=== PATIENT | female | born 1940 | race Caucasian/White ===

== ENCOUNTER 2021-10-11 09:13 | Outpatient (RCR) | payer MEDICARE, BC, SELFPAY ==
[2021-10-11 09:48] LABS: Basophils Percent Auto 0.9 % (0.0-3.0); Hematocrit 35.9 % (33.0-51.0); Hemoglobin* 11.8 gm/dL (12.0-16.0); Immature Granulocytes Abs Auto 0.02 K/uL (0.00-0.30); Lymphocytes Percent Auto 23.2 % (20-44); Mean Corpuscular HGB Conc 33 gm/dL (32-36); Mean Corpuscular Hemoglobin 41 pg (26-34); Mean Corpuscular Volume 126 fL (80-100); Monocytes Percent Auto 6.8 % (0.0-11.0); Neutrophils Percent Auto 65.6 % (42.0-72.0); Platelet Count* 314 K/uL (140-440); RDW Coefficient of Variation % 14.5 % (11.5-15.5); Red Blood Count 2.85 m/uL (4.00-5.20)
[2021-10-11 09:56] LABS: Slide Review Reflex No
[2021-10-11 10:05] LABS: Chloride* 106 mmol/L (96-114); Potassium* 4.5 mmol/L (3.6-5.1); Sodium* 139 mmol/L (135-149)
[2021-10-11 10:07] LABS: Bilirubin Total* 0.6 mg/dL (0.1-1.5); Creatinine* 0.7 mg/dL (0.5-1.5)
[2021-10-11 10:08] LABS: Alanine Aminotransferase* 18 U/L (4-35); Alkaline Phosphatase* 49 U/L (40-150); Aspartate Amino Transferase* 32 U/L (12-35); Blood Urea Nitrogen* 24 mg/dL (7-30); Calcium* 8.9 mg/dL (8.4-10.6); Carbon Dioxide* 32 mmol/L (20-32); Glucose* 81 mg/dL (60-115); Total Protein* 6.1 g/dL (6.0-8.3)
== END 2021-10-28 23:59 | disposition home or self-care (01) ==
LOC: CCIC 09:13
PROVIDERS: Internal Medicine Hematology & Oncology; PCP Family Medicine; Visit Provider Clinical Nurse Specialist
DX: D47.3 Essential (hemorrhagic) thrombocythemia (principal); D49.4 Neoplasm of unspecified behavior of bladder; G25.81 Restless legs syndrome
CPT/HCPCS: 36415; 80053; 85025; 99212; 99214

== ENCOUNTER 2022-04-29 11:00 | Outpatient (RCR) | payer MEDICARE, BC, SELFPAY ==
[2021-11-08 08:46] LABS: Basophils Absolute Auto 0.07 K/uL (0.00-0.30); Basophils Percent Auto 1.4 % (0.0-3.0); Eosinophils Absolute Auto 0.12 K/uL (0.00-0.50); Eosinophils Percent Auto 2.4 % (0.0-7.0); Hematocrit 36.6 % (33.0-51.0); Hemoglobin* 12.1 gm/dL (12.0-16.0); Immature Granulocytes Abs Auto 0.03 K/uL (0.00-0.30); Lymphocytes Absolute Auto 1.28 K/uL (0.90-2.90); Lymphocytes Percent Auto 26.1 % (20-44); Mean Corpuscular HGB Conc 33 gm/dL (32-36); Mean Corpuscular Hemoglobin 42 pg (26-34); Mean Corpuscular Volume 128 fL (80-100); Monocytes Percent Auto 7.3 % (0.0-11.0); Neutrophils Absolute Auto 3.04 K/uL (1.7-7.0); Neutrophils Percent Auto 62.2 % (42.0-72.0); Platelet Count* 358 K/uL (140-440); Red Blood Count 2.86 m/uL (4.00-5.20)
[2021-11-08 08:51] LABS: Slide Review Reflex No
--- NOTE | 2021-11-08 10:26 | ONC.NURNOTE ---
Lab results called to Karla to be reviewed by Dr Alfredo confirmed current dose 1000mg Tu-Nunez 1500 mg Friday refills needed monthly lab appts make for Nov/Dec
[2021-12-12 08:57] LABS: Basophils Absolute Auto 0.05 K/uL (0.00-0.30); Basophils Percent Auto 1.1 % (0.0-3.0); Eosinophils Absolute Auto 0.15 K/uL (0.00-0.50); Eosinophils Percent Auto 3.3 % (0.0-7.0); Hematocrit 37.5 % (33.0-51.0); Hemoglobin* 12.4 gm/dL (12.0-16.0); Immature Granulocytes Abs Auto 0.02 K/uL (0.00-0.30); Lymphocytes Absolute Auto 1.15 K/uL (0.90-2.90); Lymphocytes Percent Auto 25.2 % (20-44); Mean Corpuscular HGB Conc 33 gm/dL (32-36); Mean Corpuscular Hemoglobin 43 pg (26-34); Mean Corpuscular Volume 128 fL (80-100); Monocytes Percent Auto 5.9 % (0.0-11.0); Neutrophils Absolute Auto 2.92 K/uL (1.7-7.0); Neutrophils Percent Auto 64.1 % (42.0-72.0); Platelet Count* 352 K/uL (140-440); RDW Coefficient of Variation % 12.1 % (11.5-15.5); Red Blood Count 2.92 m/uL (4.00-5.20); White Blood Count* 4.56 K/uL (4.50-11.00)
[2021-12-12 09:05] LABS: Slide Review Reflex No
[2021-12-12 09:06] LABS: Albumin* 4.2 g/dL (3.3-5.0); Chloride* 105 mmol/L (96-114)
[2021-12-12 09:07] LABS: Potassium* 3.8 mmol/L (3.6-5.1); Sodium* 140 mmol/L (135-149)
[2021-12-12 09:09] LABS: Alkaline Phosphatase* 56 U/L (40-150); Aspartate Amino Transferase* 30 U/L (12-35); Bilirubin Total* 0.4 mg/dL (0.1-1.5); Blood Urea Nitrogen* 20 mg/dL (7-30); Carbon Dioxide* 29 mmol/L (20-32); Creatinine* 0.7 mg/dL (0.5-1.5); Estimated Glomerular Filt Rate 86 ml/min; Total Protein* 6.7 g/dL (6.0-8.3)
[2021-12-12 09:10] LABS: Alanine Aminotransferase* 23 U/L (4-35); Calcium* 8.8 mg/dL (8.4-10.6); Glucose* 72 mg/dL (60-115)
--- NOTE | 2021-12-13 12:41 | ONC.NURNOTE ---
Lab results reviewed by Sonia Monroy CNP and called to Karla results noted as stable with no hydrea dose changes, dose reviewed next lab 01/16 Karla with no concerns or changes to report
--- NOTE | 2021-12-13 12:52 | ONC.NURNOTE ---
Lab results reviewed by Sonia Monroy CNP and called to Karla dose reviewed and no changes needed next appts reviewed
[2022-01-16 10:22] LABS: Basophils Absolute Auto 0.05 K/uL (0.00-0.30); Basophils Percent Auto 0.9 % (0.0-3.0); Eosinophils Absolute Auto 0.16 K/uL (0.00-0.50); Eosinophils Percent Auto 2.8 % (0.0-7.0); Hematocrit 38.7 % (33.0-51.0); Hemoglobin* 12.7 gm/dL (12.0-16.0); Immature Granulocytes Abs Auto 0.05 K/uL (0.00-0.30); Lymphocytes Percent Auto 19.2 % (20-44); Mean Corpuscular HGB Conc 33 gm/dL (32-36); Mean Corpuscular Hemoglobin 42 pg (26-34); Mean Corpuscular Volume 128 fL (80-100); Monocytes Percent Auto 5.8 % (0.0-11.0); Neutrophils Absolute Auto 4.01 K/uL (1.7-7.0); Neutrophils Percent Auto 70.4 % (42.0-72.0); Platelet Count* 325 K/uL (140-440); RDW Coefficient of Variation % 12.2 % (11.5-15.5); Red Blood Count 3.02 m/uL (4.00-5.20); White Blood Count* 5.69 K/uL (4.50-11.00)
[2022-01-16 10:23] LABS: Slide Review Reflex No
[2022-01-16 10:40] LABS: Albumin* 4.4 g/dL (3.3-5.0); Chloride* 103 mmol/L (96-114); Potassium* 4.2 mmol/L (3.6-5.1); Sodium* 139 mmol/L (135-149)
[2022-01-16 10:43] LABS: Alanine Aminotransferase* 26 U/L (4-35); Alkaline Phosphatase* 62 U/L (40-150); Aspartate Amino Transferase* 31 U/L (12-35); Bilirubin Total* 0.4 mg/dL (0.1-1.5); Blood Urea Nitrogen* 29 mg/dL (7-30); Carbon Dioxide* 31 mmol/L (20-32); Creatinine* 0.7 mg/dL (0.5-1.5); Estimated Glomerular Filt Rate 86 ml/min; Glucose* 109 mg/dL (60-115); Total Protein* 6.9 g/dL (6.0-8.3)
[2022-01-16 10:44] LABS: Calcium* 9.5 mg/dL (8.4-10.6)
--- NOTE | 2022-01-16 14:25 | ONC.NURNOTE ---
Pt called with lab results. Hct wnl. pt to continue medication as she has been taking. pt has a lab apt 02/13. she has no further questions.
[2022-02-13 10:48] LABS: Basophils Absolute Auto 0.06 K/uL (0.00-0.30); Basophils Percent Auto 1.2 % (0.0-3.0); Eosinophils Absolute Auto 0.15 K/uL (0.00-0.50); Hematocrit 38.6 % (33.0-51.0); Hemoglobin* 12.7 gm/dL (12.0-16.0); Immature Granulocytes Abs Auto 0.04 K/uL (0.00-0.30); Immature Granulocytes Pct Auto 0.8 %; Lymphocytes Absolute Auto 1.22 K/uL (0.90-2.90); Lymphocytes Percent Auto 24.1 % (20-44); Mean Corpuscular HGB Conc 33 gm/dL (32-36); Mean Corpuscular Hemoglobin 42 pg (26-34); Mean Corpuscular Volume 127 fL (80-100); Monocytes Percent Auto 5.9 % (0.0-11.0); Platelet Count* 342 K/uL (140-440); RDW Coefficient of Variation % 12.5 % (11.5-15.5); Red Blood Count 3.04 m/uL (4.00-5.20); White Blood Count* 5.07 K/uL (4.50-11.00)
[2022-02-13 10:52] LABS: Slide Review Reflex No
[2022-02-13 11:14] LABS: Albumin* 4.2 g/dL (3.3-5.0); Chloride* 107 mmol/L (96-114)
[2022-02-13 11:15] LABS: Potassium* 4.1 mmol/L (3.6-5.1); Sodium* 141 mmol/L (135-149)
[2022-02-13 11:17] LABS: Alanine Aminotransferase* 24 U/L (4-35); Alkaline Phosphatase* 54 U/L (40-150); Aspartate Amino Transferase* 33 U/L (12-35); Bilirubin Total* 0.5 mg/dL (0.1-1.5); Blood Urea Nitrogen* 22 mg/dL (7-30); Carbon Dioxide* 29 mmol/L (20-32); Creatinine* 0.7 mg/dL (0.5-1.5); Estimated Glomerular Filt Rate 86 ml/min; Glucose* 91 mg/dL (60-115); Total Protein* 6.6 g/dL (6.0-8.3)
[2022-02-13 11:18] LABS: Calcium* 8.8 mg/dL (8.4-10.6)
--- NOTE | 2022-02-18 09:06 | ONC.NURNOTE ---
Patient was called with lab results last week- reported as stable- reviewed by provider no dose changes indicated and patient may go to Q2 mths lab next March appt for provider and lab set up
[2022-04-29 10:42] LABS: Basophils Absolute Auto 0.08 K/uL (0.00-0.30); Basophils Percent Auto 1.6 % (0.0-3.0); Eosinophils Absolute Auto 0.15 K/uL (0.00-0.50); Eosinophils Percent Auto 2.9 % (0.0-7.0); Hematocrit 37.6 % (33.0-51.0); Hemoglobin* 12.6 gm/dL (12.0-16.0); Immature Granulocytes Abs Auto 0.02 K/uL (0.00-0.30); Immature Granulocytes Pct Auto 0.4 %; Lymphocytes Absolute Auto 1.23 K/uL (0.90-2.90); Lymphocytes Percent Auto 23.9 % (20-44); Mean Corpuscular HGB Conc 34 gm/dL (32-36); Mean Corpuscular Hemoglobin 42 pg (26-34); Mean Corpuscular Volume 125 fL (80-100); Monocytes Percent Auto 7.2 % (0.0-11.0); Neutrophils Absolute Auto 3.29 K/uL (1.7-7.0); Platelet Count* 347 K/uL (140-440); RDW Coefficient of Variation % 12.3 % (11.5-15.5); Red Blood Count 3.01 m/uL (4.00-5.20); White Blood Count* 5.14 K/uL (4.50-11.00)
[2022-04-29 10:49] LABS: Slide Review Reflex Yes
[2022-04-29 10:55] LABS: Chloride* 107 mmol/L (96-114); Sodium* 141 mmol/L (135-149)
[2022-04-29 10:56] LABS: Potassium* 3.7 mmol/L (3.6-5.1)
[2022-04-29 10:58] LABS: Alkaline Phosphatase* 57 U/L (40-150); Aspartate Amino Transferase* 30 U/L (12-35); Bilirubin Total* 0.4 mg/dL (0.1-1.5); Blood Urea Nitrogen* 20 mg/dL (7-30); Carbon Dioxide* 31 mmol/L (20-32); Creatinine* 0.6 mg/dL (0.5-1.5); Estimated Glomerular Filt Rate 90 ml/min; Total Protein* 6.6 g/dL (6.0-8.3)
[2022-04-29 10:59] LABS: Alanine Aminotransferase* 24 U/L (4-35); Calcium* 8.9 mg/dL (8.4-10.6); Glucose* 74 mg/dL (60-115)
[2022-04-30 09:38] LABS: Magnesium* 2.2 mg/dL (1.5-2.6)
[2022-05-01 23:56] LABS: Slide Review Acceptable Review (Acceptable)
== END 2022-05-07 23:59 | disposition home or self-care (01) ==
LOC: CCIC 11:00
PROVIDERS: Clinical Nurse Specialist; PCP Family Medicine; Referring Provider Family Medicine; Visit Provider Nurse Practitioner Family
DX: D47.3 Essential (hemorrhagic) thrombocythemia (principal); G25.81 Restless legs syndrome
CPT/HCPCS: 36415; 80053; 83735; 85025; 99212; 99214

== ENCOUNTER 2022-10-21 12:15 | Outpatient (RCR) | payer MEDICARE, BC, SELFPAY ==
[2022-06-24 08:54] LABS: Basophils Absolute Auto 0.07 K/uL (0.00-0.30); Basophils Percent Auto 1.4 % (0.0-3.0); Eosinophils Absolute Auto 0.13 K/uL (0.00-0.50); Eosinophils Percent Auto 2.5 % (0.0-7.0); Hematocrit 40.9 % (33.0-51.0); Hemoglobin* 13.3 gm/dL (12.0-16.0); Immature Granulocytes Abs Auto 0.04 K/uL (0.00-0.30); Immature Granulocytes Pct Auto 0.8 %; Lymphocytes Percent Auto 23.4 % (20-44); Mean Corpuscular HGB Conc 33 gm/dL (32-36); Mean Corpuscular Hemoglobin 41 pg (26-34); Mean Corpuscular Volume 125 fL (80-100); Neutrophils Absolute Auto 3.32 K/uL (1.7-7.0); Neutrophils Percent Auto 64.9 % (42.0-72.0); Platelet Count* 343 K/uL (140-440); RDW Coefficient of Variation % 12.2 % (11.5-15.5); Red Blood Count 3.27 m/uL (4.00-5.20); White Blood Count* 5.12 K/uL (4.50-11.00)
[2022-06-24 09:11] LABS: Slide Review Reflex No
--- NOTE | 2022-06-25 11:07 | ONC.NURNOTE ---
Lab results reviewed by provider and called to Karla message left on VM- stable lab continue same dose of hydrea 3 tabs/Mon and 2 tabs Tu-Sun next lab due in 2 mths RTC due Randee
[2022-08-19 08:46] LABS: Basophils Absolute Auto 0.06 K/uL (0.00-0.30); Basophils Percent Auto 1.1 % (0.0-3.0); Eosinophils Absolute Auto 0.15 K/uL (0.00-0.50); Eosinophils Percent Auto 2.8 % (0.0-7.0); Hematocrit 41.6 % (33.0-51.0); Hemoglobin* 13.5 gm/dL (12.0-16.0); Immature Granulocytes Abs Auto 0.07 K/uL (0.00-0.30); Immature Granulocytes Pct Auto 1.3 %; Lymphocytes Absolute Auto 1.24 K/uL (0.90-2.90); Lymphocytes Percent Auto 23.5 % (20-44); Mean Corpuscular HGB Conc 33 gm/dL (32-36); Mean Corpuscular Hemoglobin 40 pg (26-34); Mean Corpuscular Volume 124 fL (80-100); Monocytes Percent Auto 7.2 % (0.0-11.0); Neutrophils Absolute Auto 3.37 K/uL (1.7-7.0); Neutrophils Percent Auto 64.1 % (42.0-72.0); Platelet Count* 351 K/uL (140-440); RDW Coefficient of Variation % 12.8 % (11.5-15.5); Red Blood Count 3.36 m/uL (4.00-5.20); White Blood Count* 5.27 K/uL (4.50-11.00)
[2022-08-20 06:00] LABS: Slide Review Reflex No
--- NOTE | 2022-08-20 15:30 | ONC.NURNOTE ---
Lab reviewed by Dr Mccallum message left on voicemail stable labs no dose change in hydrea next lab due 10/[address] Mccallum appt at 1 pm
[2022-10-21 12:48] LABS: Basophils Absolute Auto 0.07 K/uL (0.00-0.30); Basophils Percent Auto 1.2 % (0.0-3.0); Eosinophils Absolute Auto 0.19 K/uL (0.00-0.50); Eosinophils Percent Auto 3.2 % (0.0-7.0); Hematocrit 39.9 % (33.0-51.0); Immature Granulocytes Abs Auto 0.06 K/uL (0.00-0.30); Lymphocytes Percent Auto 19.5 % (20-44); Mean Corpuscular HGB Conc 33 gm/dL (32-36); Mean Corpuscular Hemoglobin 40 pg (26-34); Mean Corpuscular Volume 123 fL (80-100); Monocytes Percent Auto 6.9 % (0.0-11.0); Neutrophils Absolute Auto 4.02 K/uL (1.7-7.0); Neutrophils Percent Auto 68.2 % (42.0-72.0); Platelet Count* 487 K/uL (140-440); RDW Coefficient of Variation % 13.2 % (11.5-15.5); Red Blood Count 3.24 m/uL (4.00-5.20)
[2022-10-21 12:49] LABS: Slide Review Reflex No
== END 2022-12-21 23:59 | disposition home or self-care (01) ==
LOC: CCIC 12:15
PROVIDERS: Nurse Practitioner Family; PCP Family Medicine; Referring Provider Family Medicine; Visit Provider Internal Medicine Hematology & Oncology
DX: D47.3 Essential (hemorrhagic) thrombocythemia (principal); G25.81 Restless legs syndrome
CPT/HCPCS: 36415; 85025; 99212; 99213; 99214

== ENCOUNTER 2022-11-20 12:49 | Outpatient (RCR) | payer MEDICARE, BC, SELFPAY ==
[2022-11-20 13:19] LABS: Basophils Absolute Auto 0.04 K/uL (0.00-0.30); Basophils Percent Auto 0.7 % (0.0-3.0); Eosinophils Percent Auto 3.3 % (0.0-7.0); Hematocrit 39.6 % (33.0-51.0); Hemoglobin* 13.1 gm/dL (12.0-16.0); Immature Granulocytes Abs Auto 0.05 K/uL (0.00-0.30); Immature Granulocytes Pct Auto 0.8 %; Lymphocytes Percent Auto 19.7 % (20-44); Mean Corpuscular HGB Conc 33 gm/dL (32-36); Mean Corpuscular Hemoglobin 41 pg (26-34); Mean Corpuscular Volume 123 fL (80-100); Monocytes Percent Auto 4.2 % (0.0-11.0); Neutrophils Absolute Auto 4.38 K/uL (1.7-7.0); Neutrophils Percent Auto 71.3 % (42.0-72.0); Platelet Count* 469 K/uL (140-440); RDW Coefficient of Variation % 13.1 % (11.5-15.5); Red Blood Count 3.22 m/uL (4.00-5.20); White Blood Count* 6.14 K/uL (4.50-11.00)
[2022-11-20 13:21] LABS: Slide Review Reflex No
--- NOTE | 2022-11-21 17:29 | ONC.NURNOTE ---
Lab results called to Karla- and reviewed by Dr Alfredo no dose change continue on 1500mg 2x/wk and 1000 mg 5x/wk next lab in 2 mths with provider visit
== END 2023-05-19 23:59 | disposition home or self-care (01) ==
LOC: CCIC 12:49
PROVIDERS: PCP Family Medicine; Referring Provider Family Medicine; Visit Provider Internal Medicine Hematology & Oncology
DX: D47.3 Essential (hemorrhagic) thrombocythemia (principal)
CPT/HCPCS: 36415; 85025

== ENCOUNTER 2023-02-23 08:39 | Outpatient (CLI) | payer MEDICARE, BC, SELFPAY | END 2023-02-23 08:40 | disposition home or self-care (01) | LOC: NFLDREF 19:58 | PROVIDERS: PCP Family Medicine; Referring Provider Family Medicine; Visit Provider Physician Assistant | DX: R30.0 Dysuria (principal) | CPT/HCPCS: 87086; 87186 ==

== ENCOUNTER 2023-04-01 10:15 | Outpatient (RCR) | payer MEDICARE, BC, SELFPAY | END 2023-07-30 23:59 | disposition home or self-care (01) | PROVIDERS: PCP Family Medicine; Visit Provider Family Medicine | DX: N39.41 Urge incontinence (principal); M62.89 Other specified disorders of muscle; Z51.89 Encounter for other specified aftercare | CPT/HCPCS: 97110; 97140; 97162 ==

== ENCOUNTER 2023-05-20 10:15 | Outpatient (RCR) | payer MEDICARE, BC, SELFPAY ==
[2023-01-14 12:38] LABS: Eosinophils Percent Auto 2.8 % (0.0-7.0); Hematocrit 37.9 % (33.0-51.0); Hemoglobin* 12.4 gm/dL (12.0-16.0); Immature Granulocytes Pct Auto 0.5 %; Lymphocytes Percent Auto 26.3 % (20-44); Mean Corpuscular HGB Conc 33 gm/dL (32-36); Mean Corpuscular Hemoglobin 41 pg (26-34); Mean Corpuscular Volume 125 fL (80-100); Monocytes Percent Auto 6.1 % (0.0-11.0); Neutrophils Percent Auto 63.3 % (42.0-72.0); Platelet Count* 380 K/uL (140-440); RDW Coefficient of Variation % 13.3 % (11.5-15.5); Red Blood Count 3.03 m/uL (4.00-5.20); White Blood Count* 3.95 K/uL (4.50-11.00)
[2023-01-14 12:47] LABS: Slide Review Reflex No
[2023-01-14 12:50] LABS: Albumin* 3.9 g/dL (3.3-5.0); Chloride* 102 mmol/L (96-114); Potassium* 4.1 mmol/L (3.6-5.1); Sodium* 138 mmol/L (135-149)
[2023-01-14 12:52] LABS: Estimated Glomerular Filt Rate 56 ml/min
[2023-01-14 12:53] LABS: Alanine Aminotransferase* 25 U/L (4-35); Alkaline Phosphatase* 56 U/L (40-150); Anion Gap 5 mEq/L (7-15); Aspartate Amino Transferase* 41 U/L (12-35); Bilirubin Total* 0.3 mg/dL (0.1-1.5); Blood Urea Nitrogen* 21 mg/dL (7-30); Carbon Dioxide* 31 mmol/L (20-32); Glucose* 95 mg/dL (60-115); Lactate Dehydrogenase* 218 U/L (120-246); Total Protein* 6.5 g/dL (6.0-8.3)
[2023-01-14 12:54] LABS: Calcium* 8.7 mg/dL (8.4-10.6)
[2023-03-17 10:06] LABS: Basophils Absolute Auto 0.07 K/uL (0.00-0.30); Basophils Percent Auto 1.4 % (0.0-3.0); Eosinophils Absolute Auto 0.14 K/uL (0.00-0.50); Eosinophils Percent Auto 2.7 % (0.0-7.0); Hematocrit 38.7 % (33.0-51.0); Hemoglobin* 12.5 gm/dL (12.0-16.0); Immature Granulocytes Abs Auto 0.04 K/uL (0.00-0.30); Immature Granulocytes Pct Auto 0.8 %; Lymphocytes Absolute Auto 1.29 K/uL (0.90-2.90); Mean Corpuscular HGB Conc 32 gm/dL (32-36); Mean Corpuscular Hemoglobin 41 pg (26-34); Mean Corpuscular Volume 128 fL (80-100); Neutrophils Absolute Auto 3.25 K/uL (1.7-7.0); Neutrophils Percent Auto 63.1 % (42.0-72.0); Platelet Count* 387 K/uL (140-440); RDW Coefficient of Variation % 13.3 % (11.5-15.5); Red Blood Count 3.02 m/uL (4.00-5.20); White Blood Count* 5.15 K/uL (4.50-11.00)
[2023-03-17 10:07] LABS: Slide Review Reflex No
[2023-03-17 10:30] LABS: Albumin* 4.3 g/dL (3.3-5.0); Chloride* 101 mmol/L (96-114)
[2023-03-17 10:31] LABS: Sodium* 137 mmol/L (135-149)
[2023-03-17 10:33] LABS: Alkaline Phosphatase* 50 U/L (40-150); Anion Gap 7 mEq/L (7-15); Aspartate Amino Transferase* 41 U/L (12-35); Bilirubin Total* 0.5 mg/dL (0.1-1.5); Blood Urea Nitrogen* 20 mg/dL (7-30); Carbon Dioxide* 29 mmol/L (20-32); Creatinine* 0.8 mg/dL (0.5-1.5); Estimated Glomerular Filt Rate 73 ml/min; Glucose* 82 mg/dL (60-115); Lactate Dehydrogenase* 214 U/L (120-246); Total Protein* 6.9 g/dL (6.0-8.3)
[2023-03-17 10:34] LABS: Alanine Aminotransferase* 33 U/L (4-35); Calcium* 9.3 mg/dL (8.4-10.6)
--- NOTE | 2023-03-17 14:38 | ONC.NURNOTE ---
Addendum entered by Bridget Argueta RN 03/17/23 15:42: Pt called back, lab results given. Pt to continue same dose and f/u in 2 months. Pt verbalized understanding of plan of care. Original Note: lab results reviewed by Dr Mccallum message left on patients voice mail to call for results continue same dose 1500 mg 2d/wk and 1000 mg 5d/wk next lab and provider appt due in 2 months
--- NOTE | 2023-05-09 11:13 | PC.NURSE ---
Pt called today requesting a refill of her Hydrea. RN reviewed chart and brought to Ernestine Mejia APRN, CHRONOMETER ADJUSTER. Ernestine will reill. Karla notified.
[2023-05-20 10:39] LABS: Basophils Absolute Auto 0.07 K/uL (0.00-0.30); Basophils Percent Auto 1.2 % (0.0-3.0); Eosinophils Absolute Auto 0.17 K/uL (0.00-0.50); Hematocrit 38.8 % (33.0-51.0); Hemoglobin* 12.7 gm/dL (12.0-16.0); Immature Granulocytes Abs Auto 0.02 K/uL (0.00-0.30); Immature Granulocytes Pct Auto 0.4 %; Lymphocytes Absolute Auto 1.36 K/uL (0.90-2.90); Mean Corpuscular HGB Conc 33 gm/dL (32-36); Mean Corpuscular Hemoglobin 42 pg (26-34); Mean Corpuscular Volume 129 fL (80-100); Monocytes Percent Auto 6.7 % (0.0-11.0); Neutrophils Absolute Auto 3.67 K/uL (1.7-7.0); Neutrophils Percent Auto 64.7 % (42.0-72.0); Platelet Count* 429 K/uL (140-440); RDW Coefficient of Variation % 12.8 % (11.5-15.5); Red Blood Count 3.02 m/uL (4.00-5.20); White Blood Count* 5.67 K/uL (4.50-11.00)
[2023-05-20 10:44] LABS: Slide Review Reflex No
[2023-05-20 10:45] LABS: Albumin* 4.1 g/dL (3.3-5.0); Chloride* 102 mmol/L (96-114); Potassium* 3.6 mmol/L (3.6-5.1); Sodium* 139 mmol/L (135-149)
[2023-05-20 10:47] LABS: Creatinine* 0.7 mg/dL (0.5-1.5); Estimated Glomerular Filt Rate 86 ml/min
[2023-05-20 10:48] LABS: Alanine Aminotransferase* 28 U/L (4-35); Alkaline Phosphatase* 54 U/L (40-150); Anion Gap 4 mEq/L (7-15); Aspartate Amino Transferase* 35 U/L (12-35); Bilirubin Total* 0.5 mg/dL (0.1-1.5); Blood Urea Nitrogen* 24 mg/dL (7-30); Carbon Dioxide* 33 mmol/L (20-32); Glucose* 76 mg/dL (60-115); Lactate Dehydrogenase* 208 U/L (120-246); Total Protein* 6.7 g/dL (6.0-8.3)
[2023-05-20 10:49] LABS: Calcium* 9.4 mg/dL (8.4-10.6)
== END 2023-07-13 23:59 | disposition home or self-care (01) ==
LOC: CCIC 10:15
PROVIDERS: PCP Family Medicine; Referring Provider Family Medicine; Visit Provider Internal Medicine Hematology & Oncology
DX: D47.3 Essential (hemorrhagic) thrombocythemia (principal); G25.81 Restless legs syndrome
CPT/HCPCS: 36415; 80053; 83615; 85025; 99212; 99213; 99214; G0463

== ENCOUNTER 2023-12-16 09:30 | Outpatient (RCR) | payer MEDICARE, BC, SELFPAY ==
[2023-07-22 09:29] LABS: Basophils Percent Auto 1.3 % (0.0-3.0); Eosinophils Percent Auto 2.7 % (0.0-7.0); Hematocrit 37.2 % (33.0-51.0); Hemoglobin* 12.2 gm/dL (12.0-16.0); Immature Granulocytes Pct Auto 0.4 %; Lymphocytes Percent Auto 25.9 % (20-44); Mean Corpuscular HGB Conc 33 gm/dL (32-36); Mean Corpuscular Hemoglobin 42 pg (26-34); Mean Corpuscular Volume 128 fL (80-100); Monocytes Percent Auto 7.8 % (0.0-11.0); Neutrophils Percent Auto 61.9 % (42.0-72.0); Platelet Count* 335 K/uL (140-440); RDW Coefficient of Variation % 12.9 % (11.5-15.5); White Blood Count* 4.48 K/uL (4.50-11.00)
[2023-07-22 09:37] LABS: Slide Review Reflex No
[2023-07-22 09:42] LABS: Albumin* 4.1 g/dL (3.3-5.0); Chloride* 107 mmol/L (96-114); Sodium* 140 mmol/L (135-149)
[2023-07-22 09:43] LABS: Potassium* 3.9 mmol/L (3.6-5.1)
[2023-07-22 09:45] LABS: Alanine Aminotransferase* 20 U/L (4-35); Alkaline Phosphatase* 48 U/L (40-150); Anion Gap 5 mEq/L (7-15); Aspartate Amino Transferase* 28 U/L (12-35); Bilirubin Total* 0.5 mg/dL (0.1-1.5); Blood Urea Nitrogen* 24 mg/dL (7-30); Carbon Dioxide* 28 mmol/L (20-32); Creatinine* 0.8 mg/dL (0.5-1.5); Estimated Glomerular Filt Rate 73 ml/min; Glucose* 89 mg/dL (60-115); Total Protein* 6.8 g/dL (6.0-8.3)
[2023-07-22 09:46] LABS: Calcium* 9.4 mg/dL (8.4-10.6)
[2023-09-16 10:37] LABS: Basophils Absolute Auto 0.06 K/uL (0.00-0.30); Basophils Percent Auto 1.3 % (0.0-3.0); Eosinophils Absolute Auto 0.17 K/uL (0.00-0.50); Eosinophils Percent Auto 3.6 % (0.0-7.0); Hematocrit 37.6 % (33.0-51.0); Hemoglobin* 12.2 gm/dL (12.0-16.0); Immature Granulocytes Abs Auto 0.02 K/uL (0.00-0.30); Immature Granulocytes Pct Auto 0.4 %; Lymphocytes Absolute Auto 1.09 K/uL (0.90-2.90); Lymphocytes Percent Auto 22.9 % (20-44); Mean Corpuscular HGB Conc 32 gm/dL (32-36); Mean Corpuscular Hemoglobin 42 pg (26-34); Mean Corpuscular Volume 130 fL (80-100); Monocytes Percent Auto 5.1 % (0.0-11.0); Neutrophils Absolute Auto 3.17 K/uL (1.7-7.0); Neutrophils Percent Auto 66.7 % (42.0-72.0); Platelet Count* 350 K/uL (140-440); RDW Coefficient of Variation % 12.7 % (11.5-15.5); Red Blood Count 2.89 m/uL (4.00-5.20); White Blood Count* 4.75 K/uL (4.50-11.00)
[2023-09-16 10:39] LABS: Slide Review Reflex No
[2023-09-16 10:48] LABS: Albumin* 4.3 g/dL (3.3-5.0); Chloride* 105 mmol/L (96-114)
[2023-09-16 10:49] LABS: Sodium* 141 mmol/L (135-149)
[2023-09-16 10:51] LABS: Alanine Aminotransferase* 21 U/L (4-35); Alkaline Phosphatase* 48 U/L (40-150); Anion Gap 5 mEq/L (7-15); Aspartate Amino Transferase* 34 U/L (12-35); Bilirubin Total* 0.5 mg/dL (0.1-1.5); Blood Urea Nitrogen* 24 mg/dL (7-30); Calcium* 9.3 mg/dL (8.4-10.6); Carbon Dioxide* 31 mmol/L (20-32); Creatinine* 0.8 mg/dL (0.5-1.5); Estimated Glomerular Filt Rate 73 ml/min; Glucose* 102 mg/dL (60-115); Lactate Dehydrogenase* 221 U/L (120-246); Total Protein* 6.7 g/dL (6.0-8.3)
--- NOTE | 2023-10-31 13:59 | ONC.NURNOTE ---
Addendum entered by Veronica Norris RN 11/06/23 12:30: Patient stopped by and board writer gave her the recommendations from Dr. Mccallum. She will stop her aspirin a week before MOH's surgery and then start back 24 hours after procedure completed. She will also hold Hydrea for 3 days- day before -day of -and day after procedure. She understands and will plan on this Original Note: Karla stopped by with questions about stopping ASA and Hydrea prior to scheduled MOHS procedure end of October 29. She asked about stopping ASA- last time she had MOHS and stayed on ASA and experienced some incsisonal bleeding- she was told she can stay on ASA with this procedure, but patient wants to hold it- she was advised to discuss her concerns with the dermatology office performing the MOHS 2. Any recommendation from Dr Mccallum about holding Hydrea prior to this procedure.
[2023-12-16 09:38] LABS: Basophils Absolute Auto 0.06 K/uL (0.00-0.30); Basophils Percent Auto 1.1 % (0.0-3.0); Eosinophils Absolute Auto 0.12 K/uL (0.00-0.50); Eosinophils Percent Auto 2.2 % (0.0-7.0); Hematocrit 40.6 % (33.0-51.0); Immature Granulocytes Abs Auto 0.07 K/uL (0.00-0.30); Immature Granulocytes Pct Auto 1.3 %; Lymphocytes Absolute Auto 1.14 K/uL (0.90-2.90); Lymphocytes Percent Auto 21.1 % (20-44); Mean Corpuscular HGB Conc 32 gm/dL (32-36); Mean Corpuscular Hemoglobin 40 pg (26-34); Mean Corpuscular Volume 126 fL (80-100); Monocytes Percent Auto 5.6 % (0.0-11.0); Neutrophils Absolute Auto 3.71 K/uL (1.7-7.0); Neutrophils Percent Auto 68.7 % (42.0-72.0); Platelet Count* 411 K/uL (140-440); RDW Coefficient of Variation % 12.3 % (11.5-15.5); Red Blood Count 3.22 m/uL (4.00-5.20)
[2023-12-16 09:40] LABS: Slide Review Reflex No
[2023-12-16 09:55] LABS: Albumin* 4.3 g/dL (3.3-5.0); Chloride* 104 mmol/L (96-114); Sodium* 140 mmol/L (135-149)
[2023-12-16 09:56] LABS: Potassium* 3.5 mmol/L (3.6-5.1)
[2023-12-16 09:57] LABS: Bilirubin Total* 0.3 mg/dL (0.1-1.5); Creatinine* 0.9 mg/dL (0.5-1.5); Estimated Glomerular Filt Rate 63 ml/min
[2023-12-16 09:58] LABS: Alanine Aminotransferase* 22 U/L (4-35); Alkaline Phosphatase* 52 U/L (40-150); Anion Gap 8 mEq/L (7-15); Aspartate Amino Transferase* 35 U/L (12-35); Blood Urea Nitrogen* 24 mg/dL (7-30); Carbon Dioxide* 28 mmol/L (20-32); Glucose* 110 mg/dL (60-115); Lactate Dehydrogenase* 212 U/L (120-246); Total Protein* 6.6 g/dL (6.0-8.3)
[2023-12-16 09:59] LABS: Calcium* 9.3 mg/dL (8.4-10.6)
== END 2024-01-18 23:59 | disposition home or self-care (01) ==
LOC: CCIC 09:30
PROVIDERS: PCP Family Medicine; Referring Provider Family Medicine; Visit Provider Internal Medicine Hematology & Oncology
DX: D47.3 Essential (hemorrhagic) thrombocythemia (principal)
CPT/HCPCS: 36415; 80053; 83615; 85025; 99213; 99214; G0463

== ENCOUNTER 2024-05-31 09:00 | Outpatient (RCR) | payer MEDICARE, BC, SELFPAY ==
[2024-03-08 09:23] LABS: Eosinophils Percent Auto 2.5 % (0.0-7.0); Hematocrit 39.3 % (33.0-51.0); Hemoglobin* 12.5 gm/dL (12.0-16.0); Lymphocytes Percent Auto 28.4 % (20-44); Mean Corpuscular HGB Conc 32 gm/dL (32-36); Mean Corpuscular Hemoglobin 41 pg (26-34); Mean Corpuscular Volume 128 fL (80-100); Monocytes Percent Auto 5.8 % (0.0-11.0); Neutrophils Percent Auto 61.3 % (42.0-72.0); Platelet Count* 328 K/uL (140-440); RDW Coefficient of Variation % 14.5 % (11.5-15.5); Red Blood Count 3.06 m/uL (4.00-5.20); White Blood Count* 3.94 K/uL (4.50-11.00)
[2024-03-08 09:28] LABS: Slide Review Reflex No
[2024-03-08 09:40] LABS: Chloride* 104 mmol/L (96-114); Sodium* 138 mmol/L (135-149)
[2024-03-08 09:42] LABS: Anion Gap 3 mEq/L (7-15); Bilirubin Total* 0.3 mg/dL (0.1-1.5); Carbon Dioxide* 31 mmol/L (20-32); Creatinine* 0.8 mg/dL (0.5-1.5); Estimated Glomerular Filt Rate 73 ml/min
[2024-03-08 09:43] LABS: Alanine Aminotransferase* 19 U/L (4-35); Alkaline Phosphatase* 52 U/L (40-150); Aspartate Amino Transferase* 29 U/L (12-35); Blood Urea Nitrogen* 23 mg/dL (7-30); Calcium* 9.3 mg/dL (8.4-10.6); Glucose* 117 mg/dL (60-115); Lactate Dehydrogenase* 223 U/L (120-246); Total Protein* 6.6 g/dL (6.0-8.3)
[2024-03-08 09:50] LABS: Potassium* 3.7 mmol/L (3.6-5.1)
[2024-05-31 09:30] LABS: Basophils Absolute Auto 0.05 K/uL (0.00-0.30); Basophils Percent Auto 0.8 % (0.0-3.0); Eosinophils Absolute Auto 0.15 K/uL (0.00-0.50); Eosinophils Percent Auto 2.5 % (0.0-7.0); Hematocrit 41.9 % (33.0-51.0); Hemoglobin* 13.6 gm/dL (12.0-16.0); Immature Granulocytes Abs Auto 0.07 K/uL (0.00-0.30); Immature Granulocytes Pct Auto 1.2 %; Lymphocytes Percent Auto 19.1 % (20-44); Mean Corpuscular HGB Conc 33 gm/dL (32-36); Mean Corpuscular Hemoglobin 42 pg (26-34); Mean Corpuscular Volume 128 fL (80-100); Monocytes Percent Auto 6.8 % (0.0-11.0); Neutrophils Absolute Auto 4.22 K/uL (1.7-7.0); Neutrophils Percent Auto 69.6 % (42.0-72.0); Platelet Count* 467 K/uL (140-440); RDW Coefficient of Variation % 12.3 % (11.5-15.5); Red Blood Count 3.27 m/uL (4.00-5.20); White Blood Count* 6.06 K/uL (4.50-11.00)
[2024-05-31 09:37] LABS: Slide Review Reflex No
[2024-05-31 09:46] LABS: Albumin* 4.3 g/dL (3.3-5.0); Chloride* 102 mmol/L (96-114); Potassium* 3.8 mmol/L (3.6-5.1); Sodium* 139 mmol/L (135-149)
[2024-05-31 09:49] LABS: Alanine Aminotransferase* 19 U/L (4-35); Alkaline Phosphatase* 51 U/L (40-150); Anion Gap 6 mEq/L (7-15); Aspartate Amino Transferase* 28 U/L (12-35); Bilirubin Total* 0.5 mg/dL (0.1-1.5); Blood Urea Nitrogen* 26 mg/dL (7-30); Calcium* 9.4 mg/dL (8.4-10.6); Carbon Dioxide* 31 mmol/L (20-32); Creatinine* 0.8 mg/dL (0.5-1.5); Est. Creatinine Clearance* 44.96; Estimated Glomerular Filt Rate 73 ml/min; Glucose* 64 mg/dL (60-115); Lactate Dehydrogenase* 222 U/L (120-246)
--- NOTE | 2024-05-31 15:48 | ONC.NURNOTE ---
Lab results reviewed by Dr Mccallum and called to Karla, noted as stable. No dose adjustments. Reviewed dosing and next appts.
== END 2024-09-04 23:59 | disposition home or self-care (01) ==
LOC: CCIC 09:00
PROVIDERS: PCP Family Medicine; Referring Provider Family Medicine; Visit Provider Internal Medicine Hematology & Oncology
DX: D47.3 Essential (hemorrhagic) thrombocythemia (principal)
CPT/HCPCS: 36415; 80053; 83615; 85025; 99213; 99214; G0463

== ENCOUNTER 2024-11-25 09:45 | Outpatient (RCR) | payer MEDICARE, BC, SELFPAY | END 2025-03-25 23:59 | disposition home or self-care (01) | PROVIDERS: PCP Family Medicine; Visit Provider Family Medicine | DX: M76.61 Achilles tendinitis, right leg (principal); M76.62 Achilles tendinitis, left leg; G60.8 Other hereditary and idiopathic neuropathies; R26.89 Other abnormalities of gait and mobility; Z51.89 Encounter for other specified aftercare | CPT/HCPCS: 97110; 97162 ==

== ENCOUNTER 2024-12-08 13:00 | Outpatient (RCR) | payer MEDICARE, BC, SELFPAY ==
[2024-12-08 13:24] LABS: Hematocrit* 40.1 % (33.0-51.0); Hemoglobin* 12.9 gm/dL (12.0-16.0); Immature Granulocytes Abs Auto 0.07 K/uL (0.00-0.30); Immature Granulocytes Pct Auto 0.9 %; Mean Corpuscular HGB Conc 32 gm/dL (32-36); Mean Corpuscular Hemoglobin 40 pg (26-34); Mean Corpuscular Volume 124 fL (80-100); RDW Coefficient of Variation % 13.9 % (11.5-15.5); Red Blood Count* 3.24 m/uL (4.00-5.20); White Blood Count* 7.55 K/uL (4.50-11.00)
[2024-12-08 13:31] LABS: Lymphocytes Absolute Auto 1.00 K/uL (0.90-2.90)
[2024-12-08 13:32] LABS: Slide Review Reflex No
[2024-12-08 13:36] LABS: Albumin* 4.0 g/dL (3.3-5.0); Chloride* 102 mmol/L (96-114); Potassium* 4.1 mmol/L (3.6-5.1); Sodium* 139 mmol/L (135-149)
[2024-12-08 13:38] LABS: Anion Gap 6 mEq/L (7-15); Blood Urea Nitrogen* 24 mg/dL (7-30); Carbon Dioxide* 31 mmol/L (20-32); Creatinine* 0.9 mg/dL (0.5-1.5); Est. Creatinine Clearance* 44.48; Estimated Glomerular Filt Rate 63 ml/min
[2024-12-08 13:39] LABS: Alanine Aminotransferase* 16 U/L (4-35); Alkaline Phosphatase* 55 U/L (40-150); Bilirubin Total* 0.2 mg/dL (0.1-1.5); Calcium* 9.3 mg/dL (8.4-10.6); Glucose* 78 mg/dL (60-115); Total Protein* 6.6 g/dL (6.0-8.3)
[2024-12-08 13:40] LABS: Aspartate Amino Transferase* 39 U/L (12-35)
--- NOTE | 2024-12-15 11:48 | ONC.NURNOTE ---
Lab results reviewed by Dr Mccallum and called to Karla next appts scheduled labs noted as stable and with in expected parameters
== END 2025-03-07 23:59 | disposition home or self-care (01) ==
LOC: CCIC 13:00
PROVIDERS: PCP Family Medicine; Referring Provider Family Medicine; Visit Provider Internal Medicine Hematology & Oncology
DX: D47.3 Essential (hemorrhagic) thrombocythemia (principal); G25.81 Restless legs syndrome; Z79.82 Long term (current) use of aspirin; E03.9 Hypothyroidism, unspecified
CPT/HCPCS: 36415; 80053; 83615; 85025; 99213; 99214; G0463

== ENCOUNTER 2024-12-17 16:18 | Emergency (ER) | payer MEDICARE, BC, SELFPAY ==
--- OUTSIDE RECORDS SUMMARY | 2024-12-17 16:20 | XMS_ITS | Clinical Summary ---
Author Organization [facility] Address [address] [place] [id number] Care Team Providers Care Tongue Carrier Name Role Phone Muriel Lindsey Nicolas Unavailable [phone] Chitra Pierre MD Unavailable [phone] Mervin Brwoning MD Unavailable [phone] Candida Alfredo MD Unavailable Alda Saab MD Primary Care Provide r Allergies No known active allergies Medications omega-3 fatty acids-vitamin E (FISH OIL) 1,000 mg Cap Take one capsule once daily 0 0 Active calcium carbonate-choleca lciferol, 600mg-200 units, (CALCIUM 600 + D,3,) tablet Take 1 tablet by mouth once daily with a meal. 0 7 Active polyethylene glycoL (MIRALAX) 17 gram/dose powder Take 17 g by mouth once daily if needed for Constipation . 0 7 Active hydroxyurea (Hydrea) 500 mg capsuleIndication s:Thrombocythemia , essential (HC) 1500 mg Friday and Friday, 1000 mg all other days 60 Capsule 11 3 Active cholecalciferol (Vitamin D-3) 2,000 unit capsuleIndication s:Vitamin D deficiency Take 1 Capsule (2,000 units) by mouth once daily. 0 3 Active vit C,Q-Ve-vdlwz-lute in-zeaxan (PreserVision AREDS-2) capsuleIndication s:Vitamin D deficiency Take 1 Capsule by mouth once daily. 0 3 Active cranberry fruit (Cranberry) 450 mg tablet Take 1 Tablet (450 mg) by mouth. 3 Active aspirin (Adult Low Dose Aspirin) 81 mg enteric coated tablet Take 1 tablet every day by oral route. Active oxybutynin (DITROPAN) 5 mg tabletIndications :Urge incontinence Take 1 Tablet (5 mg) by mouth 2 times daily if needed (urinary urgency). 60 Tablet 3 4 Active levothyroxine (SYNTHROID) 75 mcg tabletIndications :Hypothyroidism, unspecified type Take 1 Tablet (75 mcg) by mouth before breakfast. 90 Tablet 3 5 Active cyanocobalamin (Vitamin B-12) 1,000 mcg tabletIndications :B12 deficiency Take 1 Tablet (1,000 mcg) by mouth once daily. Three times per week 36 Tablet 3 5 Active Active Problems Problem Noted Date Diagnosed Date Malignant tumor of urinary bladder 05/18/2020 Essential thrombocythemia 07/29/2018 Overview (04/03/2020): Hematology [facility] - Dr Phillips Osteopenia 06/03/2018 Basal cell carcinoma of scalp 12/22/2015 Vitamin D deficiency 01/25/2014 Osteopenia 12/31/2011 Microscopic colitis 02/07/2011 Colon polyp 02/07/2011 Overview (01/06/2020): Colonoscopy 01/2011 hyperplastic polyp, no follow up colonoscopy needed Colonoscopy 2015 hyperplastic polyp, no follow up colonoscopy needed Sensorineural hearing loss, bilateral 12/01/2009 Unspecified hypothyroidism 10/08/2006 Resolved Problems Problem Noted Date Diagnosed Date Resolved Date Sensorineural hearing loss, unspecified 07/14/2007 12/01/2009 Other and unspecified noninf ectious gastroenteritis and colitis(558.9) 10/08/200602/07 Unspecified hearing loss 10/08/200607/2008 Encounters Date Type Department Care Team Description 12/17/2024 Telephone [facility] [address] [place] [address] Alda Saab MD Constipation 12/08/2024 10:00 AM CDT Ancillary Procedure [facility] [address] [place] [id number] 12/07/2024 11:00 AM CDT Office Visit [facility] [address] [place] [address] Yolie Márquez AuD Hearing Aid (BABIN check) 12/07/2024 Travel 11/16/2024 1:00 PM CDT Office Visit [address] [place] [address] Yolie Márquez AuD Hearing Aid (BABIN fitting) 11/16/2024 Travel 11/02/[address] [place] [address] Alda Saab MD Constipation 10/29/2024 3:15 PM CDT Ancillary Procedure [address] [place] [address] 10/29/2024 1:00 PM CDT Office Visit [address] [place] [address] Alda Saab MD Leg Swelling (Worse this summer. Right ankle feels bruised. ); Constipation (Started with feeling blocked and finally had explosion on Friday. Friday she stood up and bowel ran out. Used imodium. Did 1 tsp metamucil yesterday and one today. Had a soft bowel movement, small as she had not been eating.) 10/29/2024 Travel 10/28/[address] [place] [address] Alda Saab MD Bowel Problem 10/26/2024 12:30 PM CDT Office Visit [address] [place] [address] Yolie Márquez AuD Hearing Problem (Hearing test and BABIN consult); Hearing Aid 10/26/2024 Travel 10/21/[address] [place] [address] Alda Saab MD Referral (Audiological Evaluation) 10/12/2024 2:00 PM CDT Office Visit [facility] [address] [facility] [address] Yolie Márquez AuD Hearing Aid (BABIN check) 10/12/2024 Travel 09/23/2024 Orders Only [facility] Scanner 1 scan: (1-Ord) [place] [facility], CYSTOSCOPY - FEMALE, 09/23/2024 from Last 3 Months Immunizations Immunization Administration Dates Next Due COVID-19 VACCINE SPIKEVAX (M ODERNA 50MCG/0.5ML) 12YO+ PFS 07/23/2023,01/09/2023 COVID-19 vaccine (Pfizer-Bio NTech 30mcg/0.3mL) 12YO+ BIVALENT PF, MDV 08/08/2022,12/19/2021 COVID-19 vaccine (Pfizer-Bio NTech 30mcg/0.3mL) 12YO+ LEEANNE-SUCROSE PF, MDV 07/10/2021 COVID-19 vaccine (Pfizer-Bio NTech 30mcg/0.3mL) PF, MDV 05/24/2020,05/03/2020 Influenza Virus, Unspecified 12/06/2010 Influenza, High-dose Inactivated 018,11/29/2016,12/28/2015,2014,12/17/2013 Influenza, High-dose Quadriv alent Inactivated 01/12/2022,12/15/2020,11/19/2019 Influenza, IIV3 (Age >=3 years) 12/05/19 13,11/20/2011,12/06/2010,2008 Influenza, Inactivated AIIV4 (Age 65+ Years) Preserv Free 01/09/2023 Influenza, Inactivated IIV3 (Age 65+ Years) Preserv Free 12/23/2023,11/27/2018 Pneumococcal Poly,23-Valent (Pneumovax) 12/11/2010 Pneumococcal conj 13-Valent (Prevnar 13) 02/28/2015 Td (Age >=7 Years) 05/11/2004 Tdap 01/22/2022,12/31/2011 Zoster (Shingrix-RZV, recombinant) 08/20/2018, Zoster (Zostavax-ZVL, live) 10/08/2006 Family History Medical History Relation Name Comments Other Father Parkinsons Stroke Maternal Grandmother Hypertension Mother Stroke Mother Stroke Paternal Grandmother Other Sister Parkinsons in mid 60's Cancer-breast No Family History Relation Name Status Comments Father Maternal Grandmother Mother Paternal Grandmother Sister Social History Tobacco Use Types Packs/Day Years Used Date Smoking Tobacco: Never Passive Smoke Exposure: Never Smokeless Tobacco: Never Tobacco Cessation:Counseling Given: Not Answered Alcohol Use Standard Drinks/Week Comments Not Currently 5 (1 standard drink = 0.6 oz pur e alcohol) occasional-wine PHQ-2 Answer Date Recorded PHQ-2 TOTAL SCORE 0 01/13/2024 Social Connections Answer Date Recorded Do you often feel lonely or isolated from those around you? 0 10/29/2024 Financial Resource Strain Answer Date R ecorded Difficulty of Paying Living Expenses 3 10/29/2024 Difficulty of Paying Living Expenses Not on file 10/29/2024 Food Insecurity Answer Date Recorded Do you worry your food will run out before you are able to buy more? 1 10/29/2024 Transportation Needs Answer Date Record ed Does lack of transportation keep you from medica l appointments? 1 10/29/2024 Does lack of transportation keep you from work, meetings or getting things that you need? 1 10/29/2024 Housing Stability Answer Date Recorded What is your housing situation today? 1 10/29/2024 Utilities Answer Date Recorded Do you have trouble paying f or utilities (for example, heat, electricity, water, phone)? 1 10/29/2024 Comments No Sex and Gender Information Value Date Recorded Sex Assigned at Female 04/09/2024 2:11 PM BRANCH CREDIT COUNSELOR Legal Sex Female 6:26 AM BRANCH CREDIT COUNSELOR Gender Identity Female 04/09/2024 2:11 PM BRANCH CREDIT COUNSELOR Sexual Orientation Straight 04/09/2024 2: 11 PM BRANCH CREDIT COUNSELOR Obstetrics History Para Term AB IAB SAB Ectopic Multiple Livin g Live Births 1 2 Date Outcome GA Total Labor Labor/2nd/3rd Weight Sex Type Anes PTL Larisa A1 A5 Name Clin Last Filed Vital Signs Vital Sign Reading Time Taken Comments Blood Pressure 104/61 10/29/2024 1:30 PM CDT Pulse 78 10/29/2024 1:30 PM CDT Temperature 36.8 C (98.2 F) 09/22/2023 5:18 PM CDT Respiratory Rate 19 09/22/2023 5:18 PM CDT Oxygen Saturation 96% 10/29/2024 1:30 PM CDT Inhaled Oxygen Concentration - - Weight 68.9 kg (152 lb) 10/29/2024 1:30 PM CDT Height 180.3 cm (5' 11) 01/13/2024 2:00 PM CDT Body Mass Index 21.2 01/13/2024 2:00 PM CDT Plan of Treatment Upcoming Encounters Date Type Department Care Team (Late st Contact Info) Description 12/20/2024 11:00 AM CDT Office Visit [facility] [address] [place] [address] Yolie Márquez, AuD [address] [place] [address] 02/01/2025 1:00 PM BRANCH CREDIT COUNSELOR Office Visit [facility] [address] [place] [address] Alda Saab MD [address] [place] [address] Health Maintenance Due Date Last Done Comments RSV vaccine for adults or (1 - 1-dose 75+ series) 09/06/2014 COVID-19 vaccine series ( season) 2024 08/27/2024, 12/23/2023, 07/23/2023, Additional history exists Influenza Vaccine (#1) 2024 , 01/09/2023, 11/27/2018, Additional history exists BMI (ht and wt on same day) for age 18+ 01/12/2025 01/13/2024, 01/09/2023, 12/06/2021, Additional history exists Depression screening for age 12+ 01/12/2025 01/13/2024, 01/09/2023, 12/06/2021, Additional history exists Medicare Wellness for age 65+ 01/13/2025 01/13/2024, 01/09/2023, 12/06/2021, Additional history exists Tetanus booster 01/23/2032 01/22/2022, 05/2011, 05/11/2004 Pneumococcal series for age 50+ Completed 02/28/2015, 12/11/2010 DEXA/DXA scan for age 65+ Completed 2018, 01/19/2013, 12/25/2010, Additional history exists Zoster (shingles) series for age 50+ Completed 08/20/2018, 06/15/2018, 10/08/2006 Hepatitis B series for 19+ Aged Out N o longer eligible based on patient's age to complete this topic Procedures Procedure Name Priority Date/Time Associated Diagnosis Comments ECHO TTE COMPLETE WO CONTRAST Routine 12/08/2024 10:48 AM CDT Heart murmur US VENOUS LOWER EXTREMITY RIGHT Routine 10/29/2024 3:29 PM CDT Right leg swelling SCAN-OPERATIVE/PROC EDURE REPORT 09/23/2024 12:00 AM CDT XR DXA BONE DENSITY 2 SITES AXIAL Routine 07/28/2018 2:49 PM CDT Disorder of bone Osteopenia, unspecified location from Last 3 Months or Most Recently Relevant to Health Maintenance Results * ECHO TTE COMPLETE WO CONTRAST (12/08/2024 10:48 AM CDT) AORTIC VALVE MEAN PG 9 mmHg EJECTION FRACTION 66 % PEAK TR VELOCITY 3.1 m/s LVEDD 3.6 cm EJECTION FRACTION 65 - 70% Anatomical Region Laterality Modality Ultrasound 12/08/2024 10:2 1 AM CDT Narrative 12/08/2024 11:13 AM CDT ECHOCARDIOGRAM ROHIT FORBES : 1940 84 years Study Date: 12/08/2024 10:21:01 AM Gender: F BP: 104/61 mmHg Height: 180.00 cm BSA: 1.87 m Weight: 69.00 kg Tech: [facility] Referring MD: ALDA SAAB Site: [facility] Reading Location: MOBILE OP Patient Location: Outpatient. Procedure: 2D, Color Doppler and Spectral Doppler. Indication for study: murmur Cardiac Rhythm: Regular.Study quality: Fair. Final Impressions: 1. Normal left ventricular size, normal wall thickness, normal global systolic function, calculated EF of 66 %. 2. Right ventricular cavity size is normal, global systolic RV function is normal. 3. The aortic valve is trileaflet and sclerotic, mild stenosis and no regurgitation. 4. The mitral valve is sclerotic, mild mitral regurgitation. Comparison There are no prior studies on this patient for comparison purposes. Chamber Sizes and Function Normal left ventricular size, normal wall thickness, normal global systolic function, calculated EF of 66 %. No resting regional wall motion abnormality visualized. Left atrial size is normal. Left atrial pressure is normal. Right ventricular cavity size is normal, global systolic RV function is normal. RV wall thickness is normal. The right atrium is normal. Right atrial volume index is 10 ml/m . Right atrial area is 8 cm . The pulmonary artery is of normal size and origin. The sinus of Valsalva is normal sized. The ascending aorta is normal sized. Valves, RV Pressures and Diastolic Function The aortic valve is trileaflet and sclerotic, mild stenosis and no regurgitation. The mitral valve is sclerotic, mild mitral regurgitation. Indeterminate pattern of LV diastolic filling. The tricuspid valve is normal in structure, mild tricuspid regurgitation. The tricuspid regurgitant velocity is 3.1 m/s, the estimated right ventricular systolic pressure is 37 mmHg plus right atrial pressure. The pulmonic valve is normal. No pulmonary regurgitation. Masses, Effusion, Shunts There is no pericardial effusion. The inferior vena cava is normal sized, respiratory size variation greater than 50%. No left to right shunting was detected by limited color flow Doppler interrogation of the interatrial septum. MEASUREMENTS AND CALCULATIONS 2-D Measurements and LV Function: LVID (d) 3.6 cm Planimetered EF 66 % LVID (s) 2.0 cm LV FS% (2D) 46 % IVS (d) 1.1 cm LVOT diameter 2.0 cm LVPW (d) 1.0 cm HR 87 bpm Ao Sinus 2.8 cm LA Vol index 24 ml/m2 Ao Sinus ULN 3.8 cm * RA Vol index 10 ml/m2 Ao ST junct 2.4 cm RA area 8 cm Asc Ao 3.2 cm RV Basal Diam 3.1 cm Asc Ao ULN 4.1 cm * RV Mid Diam 2.4 cm LA 3.8 cm * Input age outside of range, reported values correspond to Age = 79 Diastology: Mitral Tissue Doppler E Peak 1.6 m/s e', Septum 0.06 m/s A Peak 1.7 m/s e', Lateral 0.04 m/s E/A 0.9 E/e' Average 31.72 DT 300 msec Aortic Valve: Vmax 2.0 m/s FRANCI (V) 2.02 cm VTI 0.42 m FRANCI (I) 2.28 cm LVOT V max 1.2 m/s Max PG 15 mmHg LVOT VTI 0.30 m Mean PG 9 mmHg SV 96 ml Dim Index 0.72 SV index 51 ml/m CO 8.4 l/min CI 4.5 l/min/m Mitral Valve: MVA 2.5 cm MV P 1/2 87 msec MV Mean G 7 mmHg MV VTI 0.46 m Tricuspid Valve and estimated PA pressures: TR Vmax 3.1 m/s TAPSE 2.3 cm TR maxG 37 mmHg . This study was interpreted by an [facility] accredited facility. Final Procedure Note Leland Sorensen MD - 12/08/2024 ECHOCARDIOGRAM ROHIT FORBES : 1940 84 years Study Date: 12/08/2024 10:21:01 AM Gender: F BP: 104/61 mmHg Height: 180.00 cm BSA: 1.87 m Weight: 69.00 kg Tech: R Referring MD: ALDA SAAB Site: [facility] Reading Location: MOBILE OP Patient Location: Outpatient. Procedure: 2D, Color Doppler and Spectral Doppler. Indication for study: murmur Cardiac Rhythm: Regular.Study quality: Fair. Final Impressions: 1. Normal left ventricular size, normal wall thickness, normal globalsystolic function, calculated EF of 66 %. 2. Right ventricular cavity size is normal, global systolic RV functionis normal. 3. The aortic valve is trileaflet and sclerotic, mild stenosis and noregurgitation. 4. The mitral valve is sclerotic, mild mitral regurgitation. Comparison There are no prior studies on this patient for comparison purposes. Chamber Sizes and Function Normal left ventricular size, normal wall thickness, normal globalsystolic function, calculated EF of 66 %. No resting regional wall motionabnormality visualized. Left atrial size is normal. Left atrial pressureis normal. Right ventricular cavity size is normal, global systolic RVfunction is normal. RV wall thickness is normal. The right atrium isnormal. Right atrial volume index is 10 ml/m . Right atrial area is 8cm . The pulmonary artery is of normal size and origin. The sinus ofValsalva is normal sized. The ascending aorta is normal sized. Valves, RV Pressures and Diastolic Function The aortic valve is trileaflet and sclerotic, mild stenosis and noregurgitation. The mitral valve is sclerotic, mild mitral regurgitation.Indeterminate pattern of LV diastolic filling. The tricuspid valve isnormal in structure, mild tricuspid regurgitation. The tricuspidregurgitant velocity is 3.1 m/s, the estimated right ventricular systolicpressure is 37 mmHg plus right atrial pressure. The pulmonic valve isnormal. No pulmonary regurgitation. Masses, Effusion, Shunts There is no pericardial effusion. The inferior vena cava is normal sized,respiratory size variation greater than 50%. No left to right shunting wasdetected by limited color flow Doppler interrogation of the interatrialseptum. MEASUREMENTS AND CALCULATIONS 2-D Measurements and LV Function: LVID (d) 3.6 cm Planimetered EF 66% LVID (s) 2.0 cm LV FS% (2D) 46% IVS (d) 1.1 cm LVOT diameter2.0 cm LVPW (d) 1.0 cm HR 87bpm Ao Sinus 2.8 cm LA Vol index 24ml/m2 Ao Sinus ULN 3.8 cm * RA Vol index 10ml/m2 Ao ST junct 2.4 cm RA area 8cm Asc Ao 3.2 cm RV Basal Diam3.1 cm Asc Ao ULN 4.1 cm * RV Mid Diam2.4 cm LA 3.8 cm * Input age outside of range, reported values correspond to Age = 79 Diastology: Mitral Tissue Doppler E Peak 1.6 m/s e', Septum 0.06 m/s A Peak 1.7 m/s e', Lateral 0.04 m/s E/A 0.9 E/e' Average 31.72 DT 300 msec Aortic Valve: Vmax 2.0 m/s FRANCI (V) 2.02 cm VTI 0.42 m FRANCI (I) 2.28 cm LVOT V max 1.2 m/s Max PG 15 mmHg LVOT VTI 0.30 m Mean PG 9 mmHg SV 96 ml Dim Index 0.72 SV index 51 ml/m CO 8.4 l/min CI 4.5 l/min/m Mitral Valve: MVA 2.5 cm MV P 1/2 87 msec MV Mean G 7 mmHg MV VTI 0.46 m Tricuspid Valve and estimated PA pressures: TR Vmax 3.1 m/s TAPSE 2.3 cm TR maxG 37 mmHg . This study was interpreted by an [facility] accredited facility. Final us Alda Saab MD ECHO ORD Final Result * US VENOUS LOWER EXTREMITY RIGHT (10/29/2024 3:29 PM CDT) Anatomical Region Laterality Modality LEGS, LEG R, Abdomen Ultrasound 10/29/2024 3:41 PM CDT Impressions 10/29/2024 3:41 PM CDT Normal right lower extremity venous ultrasound, no sign of deep venous thrombosis. Dictated by Yuval Cardona MD @ 10/29/2024 3:41:32 PM (Electronically Signed) Narrative 10/29/2024 3:41 PM CDT For Patients: As a result of the 21st Century Cures Act, medical imaging exams and procedure reports are released immediately into your electronic medical record. You may view this report before your referring provider. If you have questions, please contact your health care provider. INDICATION: Right leg swelling TECHNIQUE: Ultrasound venous duplex lower right extremity. Compression venous exam was performed using moreno-scale, color Doppler, and spectral Doppler imaging. COMPARISON: None. FINDINGS: Sonographic imaging demonstrates the right common femoral, deep femoral, superficial femoral, popliteal, posterior tibial and greater saphenous and the contralateral left common femoral veins to be fully compressible with normal color Doppler blood flow. Procedure Note Yuval Cardona MD - 10/29/2024 For Patients: As a result of the Cures Act, medical imagingexams and procedure reports are released immediately into your electronicmedical record. You may view this report before your referring provider.If you have questions, please contact your health care provider. INDICATION: Right leg swelling TECHNIQUE: Ultrasound venous duplex lower right extremity. Compression venous examwas performed using moreno-scale, color Doppler, and spectral Dopplerimaging. COMPARISON: None. FINDINGS: Sonographic imaging demonstrates the right common femoral, deep femoral,superficial femoral, popliteal, posterior tibial and greater saphenous andthe contralateral left common femoral veins to be fully compressible withnormal color Doppler blood flow. IMPRESSION: Normal right lower extremity venous ultrasound, no sign of deep venousthrombosis. Dictated by Yuval Cardona MD @ 10/29/2024 3:41:32 PM (Electronically Signed) us Alda Saab MD US Final Result * SCAN-OPERATIVE/PROCEDURE REPORT (09/23/2024 12:00 AM CDT) us Scanner OTHER Final Result * (ABNORMAL) XR DXA BONE DENSITY 2 SITES AXIAL (07/28/2018 2:49 PM CDT) Anatomical Region Laterality Modality Spine, HIPS, HIPL, HIPR Other Narrative 07/31/2018 5:06 PM CDT Please see scanned document for results of this study. us Vivi Bah MD DEXA Final Result from Last 3 Months or Most Recently Relevant to Health Maintenance Insurance MEDICARE PB ONLY [facility] MEDICARE PART B HB ONLY Advance Directives Documents on File Type Date Recorded Patient Emt Dispatcher Expl anation Healthcare Directive 11/21/2016 2:32 PM A [facility], 01/14/2005 Healthcare Directive 01/14/2005 HEALTH CARE DIRECTIVE, [facility], 01/14/05 * Full Code (Latest Code Status on File) Date Activated Date Inactivated Comments 07/15/2018 9:41 AM 07/16/2018 2:17 AM Care Teams Tongue Carrier Relationship Specialty Start Date End Date Alda Saab MD [address] [place] [address] PCP - General Family Practice 07/12/22 Muriel Lindsey AuD Audiology 05/15/12 Chitra Pierre MD Dermatology Dermatology 05/13/17 Mervin Browning MD [address] [address] Surgery - Urology 12/06/21 Candida Alfredo MD [address] [address] Hematology and Oncology 12/06/21
[2024-12-17 16:31] VITALS: BP 141/59; PULSE 98; RESP 20; TEMP 36.4; O2SAT 97; BMI 20.9
--- NOTE | 2024-12-17 16:55 | ED.GENADULT ---
HPI - General Adult General Chief complaint: Constipation Stated complaint: Bowel Blockage Time Seen by Provider: 12/17/24 16:18 Source: patient Mode of arrival: ambulatory Limitations: no limitations History of Present Illness HPI narrative: 84-year-old female coming in today concerned about rectal blockage. She states that for the last 2 days she has had the sensation that she needs to have a bowel movement when she sits on the toilet only little bit of stool comes out. Then the sensation have another bowel movement comes quickly thereafter. She denies any abdominal pain, no nausea or vomiting. She states that she does have stool output, has had 3 bowel movements today and 3 yesterday. But again they are very small and very soft. She denies any stool incontinence. She states that this has happened her before and she required manual disimpaction. She takes 1/4 tsp of MiraLax daily. No blood in her stools. Patient states that she did an enema yesterday which did not yield much stool. Related Data Home Medications ?Medication ?Instructions ?Recorded ?Confirmed acetaminophen 325 mg capsule 325 mg PO Q6H PRN 10/10/21 12/17/24 aspirin 81 mg tablet,delayed 81 mg PO DAILY 10/10/21 12/17/24 release (Adult Aspirin Regimen) betamethasone dipropionate 0.05 % 1 applic topical BID 10/10/21 12/17/24 lotion multivitamin 1 tab PO DAILY 10/10/21 12/17/24 omega 7-wkh-hae-fish oil 300 1 cap PO DAILY 10/10/21 12/17/24 mg-1,000 mg capsule (Fish Oil) polyethylene glycol 3350 17 17 g PO DAILY 10/10/21 12/17/24 gram/dose oral powder (Miralax) calcium 600 mg (as carbonate)-vit 1 tab PO BID 09/16/23 12/17/24 D3 1,000 unit-vitamin K2 90 mcg tab levothyroxine 75 mcg tablet 75 mcg PO DAILY 03/08/24 12/17/24 Previous Rx's ?Medication ?Instructions ?Recorded hydroxyurea 500 mg capsule 500 mg PO DIRECTED #210 caps 09/08/24 Allergies Allergy/AdvReac Type Severity Reaction Status Date / Time No Known Drug Allergies Allergy Verified 12/17/24 16:28 Review of Systems Status of ROS: Reports: 6 or more systems reviewed and unremarkable except as noted in History and below [facility] Medical History UTI (urinary tract infection) ?N39.0 - Urinary tract infection, site not specified (ICD-10) Restless leg syndrome ?G25.81 - Restless legs syndrome (ICD-10) Hypothyroid ?E03.9 - Hypothyroidism, unspecified (ICD-10) Essential thrombocytosis ?D47.3 - Essential (hemorrhagic) thrombocythemia (ICD-10) Social History Narrative: [place]. Forbes [place] 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 Smoking Status: Never smoker Exam Narrative: Exam Narrative: Well-nourished well-developed Elderly patient in no acute distress. Alert and oriented. Answers questions appropriately. Mood and affect are appropriate. Thoughts are goal oriented and rational. No tangential or magical thinking noted. Patient speaks in full sentences without needing to catch her breath. patient does not appear uncomfortable. HEENT: Normocephalic atraumatic. Extraocular muscles are intact. Conjunctivae are moist without any icterus noted. Moist mucous membranes. Abdomen: Soft and nontender nondistended with normal bowel sounds. Rectal: Area is irritated. No evidence of infection. No tenderness or areas of fluctuance. No swelling or erythema. Normal rectal tone. She has a firm piece of stool very high into the rectal vault , I can feel it at the very tip of my finger tip. Const: Vital Signs, click to edit/add: Vital Signs - 24 hr 12/17/24 16:31 Temperature 97.6 F Pulse Rate [Pulse Oximeter] 98 Respiratory Rate 20 Blood Pressure [Ri ght Upper Arm] 141/59 H Pulse Oximetry 97 Oxygen Delivery Me thod Room Air Course Vital Signs Vital signs: Initial Vital Signs Temperature 97.6 F 12/17/24 16:31 Temperature Source Temporal Artery Scan 12/17/24 16:31 Pulse Rate 98 12/17/24 16:31 Respiratory Rate 20 12/17/24 16:31 Blood Pressure 141/59 H 12/17/24 16:31 Blood Pressure Mean 86 12/17/24 16:31 Pulse Oximetry 97 12/17/24 16:31 Oxygen Delivery Method Room Air 12/17/24 16:31 Vital Signs Temperature 97.6 F 12/17/24 16:31 Pulse Rate 98 12/17/24 16:31 Respiratory Rate 20 12/17/24 16:31 Blood Pressure 141/59 H 12/17/24 16:31 Pulse Oximetry 97 12/17/24 16:31 Oxygen Delivery Method Room Air 12/17/24 16:31 Temperature 97.6 F 12/17/24 16:31 Pulse Rate 98 12/17/24 16:31 Respiratory Rate 20 12/17/24 16:31 Blood Pressure 141/59 H 12/17/24 16:31 Pulse Oximetry 97 12/17/24 16:31 Oxygen Delivery Method Room Air 12/17/24 16:31 Medical Decision Making MDM Narrative Medical decision making narrative: 84-year-old female with firm stool in the rectum, sensation that she has to go To the bathroom with little stool output. abdomen is soft without discomfort. Given the location of the firm stool an enema would not be very fruitful today. Unable to do manual disimpaction given the location of the stool. At this time recommend fluid intake, increase dose of MiraLax to see if we can get that stool to move down on its own. Discharge Plan Discharge Clinical Impression: Constipation Patient Disposition: Home, Self-Care Condition: Stable Additional Instructions: recommend increasing MiraLax to a half scoop full daily until bowel movements are daily and more substantial. If you see no difference in the next 2-3 days, you can go to a full scoop daily. Also recommend a stool softener such as Colace -1-2 tablets daily. This can be purchased [id number]. Recommend you increase your water intake daily. If in the next 3-4 days left your symptoms are not better despite full dose of daily MiraLax and Colace, you can return to the ER for another re-examination to see if that firm stool has moved down to a place that we can do a manual disimpaction. Return to the ER if you develop vomiting or abdominal pain. Prescriptions: No Action levothyroxine 75 mcg tablet 75 mcg PO DAILY hydroxyurea 500 mg capsule 500 mg PO DIRECTED Qty: 210 3RF Rx Instructions: 1000 mg Friday through Friday 1500 mg Friday, Asya acetaminophen 325 mg capsule 325 mg PO Q6H PRN aspirin [Adult Aspirin Regimen] 81 mg tablet,delayed release (DR/EC) 81 mg PO DAILY betamethasone dipropionate 0.05 % lotion 1 applic topical BID omega 5-hmo-tmg-fish oil [Fish Oil] 300-1,000 mg capsule 1 cap PO DAILY multivitamin Tablet 1 tab PO DAILY polyethylene glycol 3350 [Miralax] 17 gram/dose powder 17 g PO DAILY calcium carb-vitamin D3-vit K2 600 mg-1,000 unit-90 mcg tablet 1 tab PO BID Follow Up/Referrals: Alda Johnson MD [Primary Care Provider, Family Practice] Stand Alone Forms: [employer] Info Instructions
== END 2024-12-17 17:26 | disposition home or self-care (01) ==
LOC: ED 17:08
PROVIDERS: Emergency Provider Family Medicine; PCP Family Medicine
DX: K59.00 Constipation, unspecified (principal)
CPT/HCPCS: 99283; 99284

== ENCOUNTER 2025-02-13 08:39 | Emergency (ER) | payer MEDICARE, BC, SELFPAY ==
--- OUTSIDE RECORDS SUMMARY | 2025-02-13 08:41 | XMS_ITS | Data Portability ---
Author Organization [facility], [facility] Address [address] [facility] [address] [place] [address] Care Team Providers Care Park Recreation Manager Name Role Phone NORMA SAAB Primary Care Provider Assessment Encounter Date Assessment Date Assessment LastModified by Organization Details LastModified Time 03/18/2022 03/18/2022 81 yoF with history of HG pT1 UCC s/p induction BCG [email or web address] Not available 03/18/2022 08:02:22 09/18/2022 09/18/2022 82 yoF with history of HG pT1 UCC s/p induction BCG [email or web address] Not available 09/18/2022 09:06:44 03/13/2023 03/13/2023 82 yoF with history of HG pT1 UCC s/p induction BCG [email or web address] Not available 03/11/2023 13:48:52 09/12/2023 09/12/2023 83 yoF with history of HG pT1 UCC s/p induction BCG [email or web address] Not available 09/08/2023 15:54:44 09/23/2024 09/23/2024 84 yoF with history of HG pT1 UCC s/p induction BCG [email or web address] Not available 09/23/2024 08:56:36 Plan of Treatment Reminders Order Date Submit Date Provider Last Modified By Organization Details Last Modified Time Details Appointments None recorded . Lab urinalys is, dipstick 2024 025 [email or web address] [facility], [address] , [place], [address], 5 15:28:48 urinalys is, dipstick 2023 024 [email or web address] [facility], [address], [place], [address], 4 14:10:39 urinalys is, dipstick 2022 023 [email or web address] [facility], [address], [place], [address], 3 11:35:05 urinalys is, dipstick 2022 023 [email or web address] [facility], [address], [place], [address], 3 12:07:29 urinalys is, dipstick 2021 022 [email or web address] [facility], [address], [place], [address], 2 11:35:39 Referral None recorded . Procedures None recorded . Surgeries None recorded . Imaging None recorded . Medication Orders None recorded . Patient TargetsNo targets recorded. Patient InstructionsNo instructions recorded. Reason for Referral None Reported. Results Created Date Observation Date Name Description Value Unit Range Abnormal Flag Note LastModifiedBy Organization Detail LastModifiedTime 03/18/2003/18/2022 urina lysis , dipst ick pH-Status 5.5 Not Available [facility] [address], [place], [address], 03/18/2022 08:02:23 03/18/20 22 03/18/2022 urina lysis , dipst ick Nitrates-Sta tus negati ve Not Available [facility] [address], [place], [address], 03/18/2022 08:02:23 03/18/20 22 03/18/2022 urina lysis , dipst ick Blood-Status Negati ve Not Available [facility] [address], [place], [address], 03/18/2022 08:02:23 03/18/20 22 03/18/2022 urina lysis , dipst ick Leuko-Status Trace Not Available [facility] [address], [place], [address], 03/18/2022 08:02:23 03/18/20 22 03/18/2022 urina lysis , dipst ick Specimen Type Voided Not Available [facility] [address], [place], [address], 03/18/2022 08:02:23 09/19/19 23 09/18/2022 urina lysis , dipst ick pH-Status 5.5 Not Available [facility] [address], [place], [address], 09/18/2022 11:50:32 09/19/19 23 09/18/2022 urina lysis , dipst ick Nitrates-Sta tus negati ve Not Available [facility] [address], [place], [address], 09/18/2022 11:50:32 09/19/19 23 09/18/2022 urina lysis , dipst ick Blood-Status Negati ve Not Available [facility] [address], [place], [address], 09/18/2022 11:50:32 09/19/19 23 09/18/2022 urina lysis , dipst ick Leuko-Status Small Not Available [facility] [address], [place], [address], 09/18/2022 11:50:32 09/19/19 23 09/18/2022 urina lysis , dipst ick Specimen Type Voided Not Available [facility] [address], [place], [address], 09/18/2022 11:50:32 03/13/20 23 03/13/2023 urina lysis , dipst ick pH-Status 5.5 Not Available [facility] [address], [place], [address], 03/13/2023 11:34:23 03/13/20 23 03/13/2023 urina lysis , dipst ick Nitrates-Sta tus negati ve Not Available [facility] [address], [place], [address], 03/13/2023 11:34:23 03/13/20 23 03/13/2023 urina lysis , dipst ick Blood-Status Negati ve Not Available [facility] [address], [place], [address], 03/13/2023 11:34:23 03/13/20 23 03/13/2023 urina lysis , dipst ick Leuko-Status Trace Not Available [facility] [address], [place], [address], 03/13/2023 11:34:23 03/13/20 23 03/13/2023 urina lysis , dipst ick Specimen Type Voided Not Available [facility] [address], [place], [address], 03/13/2023 11:34:23 09/12/19 24 09/12/2023 urina lysis , dipst ick BLOOD Negati ve Not Available [facility] [address], [place], [address], 09/12/2023 14:09:52 09/12/19 24 09/12/2023 urina lysis , dipst ick NITRITES Negati ve Not Available [facility] [address], [place], [address], 09/12/2023 14:09:52 09/12/19 24 09/12/2023 urina lysis , dipst ick p.H. 5.0 Not Available [facility] [address], [place], [address], 09/12/2023 14:09:52 09/12/19 24 09/12/2023 urina lysis , dipst ick LEUKOCYTES Small (25 WBC/uL ) Not Available [facility] [address], [place], [address], 09/12/2023 14:09:52 09/24/19 25 09/23/2024 urina lysis , dipst ick BLOOD Negati ve Not Available [facility] [address], [place], [address], 09/23/2024 08:56:03 09/24/19 25 09/23/2024 urina lysis , dipst ick NITRITES Negati ve Not Available [facility] [address], [place], [address], 09/23/2024 08:56:03 09/24/19 25 09/23/2024 urina lysis , dipst ick p.H. 5.0 Not Available [facility] [address], [place], [address], 09/23/2024 08:56:03 09/24/19 25 09/23/2024 urina lysis , dipst ick LEUKOCYTES Trace (10 WBC/uL ) Not Available [facility] [address], [place], [address], 09/23/2024 08:56:03 Result Notes None recorded. Problems Name Problem SNOMED Code Status Onset Date Resolution Date Notes Provider Name and Address Organization Details Recorded Time Malignant neoplasm of urinary bladder 405724958 Active 021 Valerie burgos [facility] 11:45:17 Problem Notes None recorded. Procedures Surgical History Date Name Laterality Status Provider Name and Address Organization Details Recorded Time 025 Cystoscopy- female completed Mervin Browning MD [address] [place] [address],[address], [address], [facility] 09/23/2024 15:53:26 025 COMPLEX VISIT completed Celsa Allen [facility] 09/23/2024 08:56:17 025 Sulfa post Cysto completed Celsa Allen [facility] 09/23/2024 08:56:19 024 Cystoscopy- female completed Mervin Browning MD [address] [place] [address],[address], [address], [facility] 09/12/2023 14:28:20 024 COMPLEX VISIT completed Mervin Browning MD [address] [place] [address],[address], [address], [facility] 09/12/2023 07:52:23 024 Sulfa post Cysto completed Celsa Trevino [facility] 09/12/2023 14:10:32 023 Cystoscopy- female completed Mervin Browning MD [address] [place] [address],[address], [address], [facility] 03/13/2023 13:59:32 023 Sulfa post Cysto completed Celsa Trevino [facility] 03/13/2023 11:35:07 023 Cystoscopy- female completed Mervin Browning MD [address] [place] [address],[address], [address], [facility] 09/18/2022 09:35:32 023 Sulfa post Cysto completed Celsa Trevino [facility] 09/18/2022 11:58:09 022 Cystoscopy- female completed Mervin Browning MD [address] [facility],[address], [place], [address], [facility] 03/18/2022 08:02:45 022 Sulfa post Cysto completed Mervin Browning MD [address] [facility],[address], [place], [address], [facility] 03/18/2022 08:02:45 022 Cystoscopy- female completed Mervin Browning MD [address] [facility],[address], [place], [address], [facility] 12/20/2021 10:52:16 022 Sulfa post Cysto completed Celsa Trevino [facility] 12/20/2021 10:51:07 021 BCG Full Dose Tx 50mg completed Britni Stephens [facility] 06/22/2020 11:19:56 021 BCG Full Dose Tx 50mg completed Britni Stephens [facility] 06/15/2020 10:51:36 021 BCG Full Dose Tx 50mg completed Valerie Ojeda [facility] 06/08/2020 11:33:24 021 BCG Full Dose Tx 50mg completed Britni Stephens [facility] 06/01/2020 10:51:37 021 BCG Full Dose Tx 50mg completed Valreie Ojeda [facility] 05/25/2020 10:17:30 021 BCG Full Dose Tx 50mg completed Valerie Ojeda [facility] 05/18/2020 11:46:32 Colonoscopy completed Celsa Trevino [facility] 12/20/2021 10:34:07 Cholecystectomy completed Celsa Trevino [facility] 12/20/2021 10:34:12 excision of basal cell carcinoma completed [facility]els[facility] 09/23/2024 15:21:06 Imaging Results None recorded. Procedure Notes None recorded. Medical Equipment None Reported. Allergies No known drug allergies Medications Name Sig Start Date Stop Date Status Note LastModified by Organization Details LastModified Time hydroxyurea 500 mg capsule active Not Available Not Available Not Available ketoconazol e 2 % shampoo 09/23 completed Not Available Not Available Not Available fluticasone propionate 0.05 % topical cream 09/23 completed Not Available Not Available Not Available ciprofloxac in 500 mg tablet 09/11 completed Not Available Not Available Not Available triamcinolo ne acetonide 0.1 % topical cream active Not Available Not Available Not Available levothyroxi ne 75 mcg tablet Take 1 tablet every day by oral route. active Not Available Not Available No t Available María BCG 50 mg intravesica l suspension Instill 50 mg by intravesi jaspal route. 03/18 completed Not Available Not Available Not Available levothyroxi ne 88 mcg tablet 09/23 completed Not Available Not Available Not Available amoxicillin 875 mg tablet 03/13 completed Not Available Not Available Not Available cephalexin 500 mg capsule 03/13 completed Not Available Not Available Not Available gabapentin 300 mg capsule 09/23 completed Not Available Not Available Not Available gabapentin 100 mg capsule 03/13 completed Not Available Not Available Not Available oxybutynin chloride 5 mg tablet Take 1 tablet twice a day by oral route as needed. active Not Available Not Available No t Available clobetasol 0.05 % scalp solution 09/23 completed Not Available Not Available Not Available Low Dose Aspirin 81 mg tablet,renny yed release Take 1 tablet every day by oral route. active Not Available Not Available No t Available Tylenol active Not Available Not Avail able Not Available mometasone 0.1 % topical solution 09/23 completed Not Available Not Available Not Available Vitals Date Recorded Body height Body mass index (BMI) Body weight Provider Name and Address Organization Details Last Updated DateTime 09/12/2023 180.34 cm 20.9 kg/m2 99228.86 g Celsa Trevino [facility] 09/12/2023 14:08:36 Date Recorded Body height Body mass index (BMI) Body weight Provider Name and Address Organization Details Last Updated DateTime 09/18/2022 180.34 cm 20.9 kg/m2 09181.86 g Celsa Trevino [facility] 09/18/2022 11:50:08 Date Recorded Body height Body mass index (BMI) Body weight Provider Name and Address Organization Details Last Updated DateTime 09/23/2024 180.34 cm 20.9 kg/m2 20323.86 g Celsa Tiffany [facility] 09/23/2024 15:17:40 Date Recorded Body height Body mass index (BMI) Body weight Provider Name and Address Organization Details Last Updated DateTime 03/13/2023 180.34 cm 20.9 kg/m2 15287.86 g Areli Jarvis [facility] 03/13/2023 11:32:35 Date Recorded Body height Body mass index (BMI) Body weight Provider Name and Address Organization Details Last Updated DateTime 03/18/2022 180.34 cm 20.9 kg/m2 31868.86 g Celsamatty Trevino [facility] 03/18/2022 11:29:11 Social History Question Answer Notes LastModified by Organizat ion Details LastModified Time Tobacco Smoking Status Never Smoker Celsa Trevino [facility] 12/20/2021 10:33:51 What Was The Date Of Your Most Recent Tobacco Screening? 09/23/2024 [email or web address] Information not available 09/23/2024 Has Tobacco Cessation Counseling Been Provided? No Information not available 09/12/2023 Sex: Unknown Functional Status Question Answer Note LastModified by Organizat ion Details LastModified Time Do you or have you ever used any other forms of tobacco or nicotine? No Information not available 09/12/2023 What is your level of alcohol consumption? Occasional Information not available 12/20/2021 Mental Status None recorded. Family History Nothing Reported. Medical History Condition Response Other Y Cancer Y Gynecological HistoryNo gynecological history recorded. Obstetrics History GPAL:G 0 P 0 0 0 0 Immunizations Vaccine Type Date Status Note Provider Nam e and Address Organization Details Recorded Time Influenza, adjuvanted, trivalent, PF 9 completed Areli burgos [facility] 03/13/2023 11:32:40 zoster recombinant 9 completed Areli burgos [facility] 03/13/2023 11:32:40 zoster recombinant 9 marito burgos [facility] 03/13/2023 11:32:40 Influenza, high-dose, quadrivalent, PF 0 completed Areli Jarvis null, [facility] 03/13/2023 11:32:40 Influenza, high-dose, quadrivalent, PF 1 completed Areli Jarvis null, [facility] 03/13/2023 11:32:40 Influenza, high-dose, quadrivalent, PF 2 completed Areli Jarvis null, [facility] 03/13/2023 11:32:40 COVID-19, mRNA, LNP-S, bivalent, PF, 30 mcg/0.3 mL dose 3 completed Areli Jarvis null, [facility] 03/13/2023 11:32:40 Tdap 2 completed Areli Jarvis null, [facility] 03/13/2023 11:32:40 zoster live 7 completed Areli Jarvis null, [facility] 03/13/2023 11:32:40 Influenza, high-dose, trivalent, PF 7 completed Areli Jarvis null, [facility] 03/13/2023 11:32:40 Influenza, high-dose, trivalent, PF 8 completed Areli Jarvis null, [facility] 03/13/2023 11:32:40 Influenza, high-dose, trivalent, PF 4 completed Areli Jarvis null, [facility] 03/13/2023 11:32:40 Influenza, high-dose, trivalent, PF 6 completed Areli Jarvis null, [facility] 03/13/2023 11:32:40 Influenza, high-dose, trivalent, PF 5 completed Areli Jarvis null, [facility] 03/13/2023 11:32:40 Influenza, split virus, trivalent, preservative 2 completed Areli Jarvis null, [facility] 03/13/2023 11:32:40 Influenza, split virus, trivalent, preservative 3 completed Areli burgos, [facility] 03/13/2023 11:32:40 Influenza, split virus, trivalent, PF 1 completed Areli Jarvis null, [facility] 03/13/2023 11:32:40 Tdap 2 completed Not Available [facility] 09/23/2024 14:58:00 Influenza, adjuvanted, quadrivalent, PF 3 completed Not Available [facility] 09/23/2024 14:58:00 COVID-19, mRNA, LNP-S, PF, 50 mcg/0.5 mL 3 completed Not Available [facility] 09/23/2024 14:58:00 COVID-19, mRNA, LNP-S, PF, 50 mcg/0.5 mL 4 completed Not Available [facility] 09/23/2024 14:58:00 COVID-19, mRNA, LNP-S, PF, 50 mcg/0.5 mL 4 completed Not Available [facility] 09/23/2024 14:58:00 Influenza, adjuvanted, trivalent, PF 4 completed Not Available [facility] 09/23/2024 14:58:00 RSV, recombinant, protein subunit RSVpreF, adjuvant reconstituted, 0.5 mL, PF 4 completed Not Available [facility] 09/23/2024 14:58:00 COVID-19, mRNA, LNP-S, PF, 50 mcg/0.5 mL 5 completed Not Available [facility] 09/23/2024 14:58:00 pneumococcal polysaccharide PPV23 1 completed Celsa Trevino null, [facility] 03/18/2022 11:31:08 COVID-19, mRNA, LNP-S, PF, 30 mcg/0.3 mL dose 1 completed Celsa Trevino null, [facility] 03/18/2022 11:31:08 COVID-19, mRNA, LNP-S, PF, 30 mcg/0.3 mL dose 1 completed Celsa Trevino null, [facility] 03/18/2022 11:31:08 COVID-19, mRNA, LNP-S, PF, 30 mcg/0.3 mL dose, michel-sucrose 2 completed Celsa Uriel null, [facility] 03/18/2022 11:31:08 COVID-19, mRNA, LNP-S, bivalent, PF, 30 mcg/0.3 mL dose 2 completed Celsa Uriel null, [facility] 03/18/2022 11:31:08 COVID-19, mRNA, LNP-S, PF, 30 mcg/0.3 mL dose 1 completed Celsa Uriel null, [facility] 03/18/2022 11:31:08 Pneumococcal conjugate PCV 13 5 completed Celsakasia Trevino null, [facility] 03/18/2022 11:31:08 Past Encounters Encounter ID Performer Location Encounter Start Date Encounter Closed Date Diagnosis/Indication Diagnosis SNOMED-CT Code Diagnosis ICD10 Code Diagnosis IMO Codes Diagnosis Note [id number] Mervin Browning MD [facility] [address] [place] [address] 05/18/2020 10:25:21 05/24/2020 08:20:41 Malignant neoplasm of urinary bladder 062344068 C67.9 [id number] Mervin Browning MD [facility] [address] [place] [address] 05/25/2020 09:51:33 05/29/2020 09:46:12 Malignant neoplasm of urinary bladder 574495812 C67.9 [id number] Mervin Browning MD [facility] [address] [place] [address] 06/01/2020 10:22:20 06/05/2020 08:44:38 Malignant neoplasm of urinary bladder 460144162 C67.9 [id number] Mervin Browning MD [facility] [address] [place] [address] 06/08/2020 11:02:23 06/09/2020 12:23:11 Malignant neoplasm of urinary bladder 709388645 C67.9 [id number] Mervin Browning MD [facility] [employer] [place] [address] 06/15/2020 10:29:11 06/16/2020 16:17:13 Malignant neoplasm of urinary bladder 675978666 C67.9 [id number] Mervin Browning MD [facility] [employer] [place] [address] 06/22/2020 10:57:04 06/26/2020 10:08:08 Malignant neoplasm of urinary bladder 706437795 C67.9 [id number] Mervin Browning MD [facility] [employer] [place] [address] 12/20/2021 10:21:49 12/21/2021 12:37:44 Malignant neoplasm of urinary bladder 732160580 C67.9 - S/p induction BCG- Surveillan ce cystoscopi es have been negative for recurrence .- Next surveillan ce cystoscopy in 3 months. If negative then will graduate to Q6 months. [id number] Mervin Browning MD [facility] [employer] [place] [address] 03/18/2022 11:20:20 03/20/2022 12:16:40 Malignant neoplasm of urinary bladder 826542408 C67.9 - S/p induction BCG (initial diagnosis 02/2020)- Surveillan ce cystoscopi es have been negative for recurrence .- Next surveillan ce cystoscopy in 6 months. [id number] Mervin Browning MD [facility] [employer] [place] [address] 09/18/2022 11:35:38 09/20/2022 14:58:01 Malignant neoplasm of urinary bladder 993974753 C67.9 - S/p induction BCG (initial diagnosis 02/2020)- Surveillan ce cystoscopi es have been negative for recurrence .- Next surveillan ce cystoscopy in 6 months. [id number] Mervin Browning MD [facility] [employer] [place] [address] 03/13/2023 11:23:08 03/20/2023 15:11:04 Malignant neoplasm of urinary bladder 336090304 C67.9 - S/p induction BCG (initial diagnosis 02/2020)- Surveillan ce cystoscopi es have been negative for recurrence .- Next surveillan ce cystoscopy in 6 months. Recurrent urinary tract infection N3.0 - Continue probiotic- Start cranberry supplement - Consider methenamin e ppx [id number] Mervin Browning MD [facility] [address] [place] [address] 09/12/2023 13:33:26 09/30/2023 16:00:49 Malignant neoplasm of urinary bladder 077847905 C67.9 - S/p induction BCG (initial diagnosis 02/2020)- Surveillan ce cystoscopi es have been negative for recurrence .- Next surveillan ce cystoscopy in 12 months. Recurrent urinary tract infection N3.0 - Continue probiotic- Continue cranberry supplement - Consider methenamin e ppx [id number] Mervin Browning MD [facility] [address] [place] [address] 09/23/2024 14:57:33 10/08/2024 10:52:05 Malignant neoplasm of urinary bladder 782054661 C67.9 - S/p induction BCG (initial diagnosis 02/2020)- Surveillan ce cystoscopi es have been negative for recurrence .- Next surveillan ce cystoscopy in 12 months. Recurrent urinary tract infection N3.0 - Continue probiotic- Continue cranberry supplement - Consider methenamin e ppx Health Concerns Section Related Observation LastModified by Organization Detai ls LastModified Time None Recorded Concern Status LastModified by Organization Details LastModified Time None Recorded Advance Directives Directive None Recorded Payers Insurance Date Sequence Insurance Name Policy Number Policy Nagy Covered Member ID Nagy Member ID Guarantor Name 09/23/2024 1 [place]: [employer] Karla Martinomeche [id number] Karla Matthew Leidy 10/08/2024 2 [place] [id number] Karla Tiff Leidy [id number] Karla Martinomeche Notes Date Note Type Note Provider Name and Address Organization Details Recorded Time 03/18/2022 text/html Ms. Forbes is a very pleasant 81 yoF who is referred to me by her PCP, Dr. Vivi Bah, regarding microscopic hematuria. Patient has had nearly two month history of pink discoloration on her toilet paper and small drops of blood within the toilet bowel. Initially it was unclear as to where it was coming from. She was seen by her PCP who initiated a work up including UA which confirmed diagnosis of hematuria. She then underwent a CT Urogram which noted an abnormality along the right bladder wall so she was referred to me today.This pattern has continued with 2-3 days of minimal amount of blood on toilet tissue or within the bowl. No dysuria, fevers, chills, nausea, emesis, or change in bowel habits.Never a smoker. 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 No evidence of CIS but no muscularis present in the pathology specimen.05/24/20:He re for follow up HG pT1 bladder cancer. Currently undergoing induction BCG.08/09/20Here for follow up HG pT1 bladder cancer. Has now completed induction BCG. Negative surveillance cystoscopy. 12/20/21:Here for follow up HG pT1 bladder cancer, surveillance cystoscopy. Doing well. 03/18/2022:Here for follow up HG pT1 bladder cancer, surveillance cystoscopy. Doing well. No evidence of post-BCG recurrence thus far. Mervin Browning MD [address] [place] [address],[address], [place], [address], [facility] 03/18/2022 11:54:58 09/18/2022 text/html Ms. Forbes is a very pleasant 82 yoF who is referred to me by her PCP, Dr. Vivi Bah, regarding microscopic hematuria. Patient has had nearly two month history of pink discoloration on her toilet paper and small drops of blood within the toilet bowel. Initially it was unclear as to where it was coming from. She was seen by her PCP who initiated a work up including UA which confirmed diagnosis of hematuria. She then underwent a CT Urogram which noted an abnormality along the right bladder wall so she was referred to me today.This pattern has continued with 2-3 days of minimal amount of blood on toilet tissue or within the bowl. No dysuria, fevers, chills, nausea, emesis, or change in bowel habits.Never a smoker. 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 No evidence of CIS but no muscularis present in the pathology specimen.05/24/20:He re for follow up HG pT1 bladder cancer. Currently undergoing induction BCG.08/09/20Here for follow up HG pT1 bladder cancer. Has now completed induction BCG. Negative surveillance cystoscopy. 12/20/21:Here for follow up HG pT1 bladder cancer, surveillance cystoscopy. Doing well. 03/18/2022:Here for follow up HG pT1 bladder cancer, surveillance cystoscopy. Doing well. No evidence of post-BCG recurrence thus far. 09/18/2022:Here for follow up HG pT1 bladder cancer, surveillance cystoscopy. Doing great. Mervin Browning MD [address] [place] [address],[address], [phone] [place] [facility] 09/18/2022 12:07:47 03/13/2023 text/html Ms. Forbes is a very pleasant 82 yoF who is referred to me by her PCP, Dr. Vivi Bah, regarding microscopic hematuria. Patient has had nearly two month history of pink discoloration on her toilet paper and small drops of blood within the toilet bowel. Initially it was unclear as to where it was coming from. She was seen by her PCP who initiated a work up including UA which confirmed diagnosis of hematuria. She then underwent a CT Urogram which noted an abnormality along the right bladder wall so she was referred to me today.This pattern has continued with 2-3 days of minimal amount of blood on toilet tissue or within the bowl. No dysuria, fevers, chills, nausea, emesis, or change in bowel habits.Never a smoker. 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 No evidence of CIS but no muscularis present in the pathology specimen.05/24/20:He re for follow up HG pT1 bladder cancer. Currently undergoing induction BCG.08/09/20Here for follow up HG pT1 bladder cancer. Has now completed induction BCG. Negative surveillance cystoscopy. 12/20/21:Here for follow up HG pT1 bladder cancer, surveillance cystoscopy. Doing well. 03/18/2022:Here for follow up HG pT1 bladder cancer, surveillance cystoscopy. Doing well. No evidence of post-BCG recurrence thus far. 09/18/2022:Here for follow up HG pT1 bladder cancer, surveillance cystoscopy. Doing great. 03/13/2023:Here for follow up HG pT1 bladder cancer, surveillance cystoscopy. Reports that she has had a coule of UTIs in the past couple of months. Mrevin Browning MD [address] [place] [address],[address], [phone], [facility] 03/13/2023 14:00:22 09/12/2023 text/html Ms. Forbes is a very pleasant 83 yoF who is referred to me by her PCP, Dr. Vivi Bah, regarding microscopic hematuria. Patient has had nearly two month history of pink discoloration on her toilet paper and small drops of blood within the toilet bowel. Initially it was unclear as to where it was coming from. She was seen by her PCP who initiated a work up including UA which confirmed diagnosis of hematuria. She then underwent a CT Urogram which noted an abnormality along the right bladder wall so she was referred to me today.This pattern has continued with 2-3 days of minimal amount of blood on toilet tissue or within the bowl. No dysuria, fevers, chills, nausea, emesis, or change in bowel habits.Never a smoker. 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 No evidence of CIS but no muscularis present in the pathology specimen.05/24/20:He re for follow up HG pT1 bladder cancer. Currently undergoing induction BCG.08/09/20Here for follow up HG pT1 bladder cancer. Has now completed induction BCG. Negative surveillance cystoscopy. 12/20/21:Here for follow up HG pT1 bladder cancer, surveillance cystoscopy. Doing well. 03/18/2022:Here for follow up HG pT1 bladder cancer, surveillance cystoscopy. Doing well. No evidence of post-BCG recurrence thus far. 09/18/2022:Here for follow up HG pT1 bladder cancer, surveillance cystoscopy. Doing great. 03/13/2023:Here for follow up HG pT1 bladder cancer, surveillance cystoscopy. Reports that she has had a couple of UTIs in the past couple of months. 09/12/2023:Here for follow up HG pT1 bladder cancer, surveillance cystoscopy. Doing well, no interval UTIs Mervin Browning MD [address] [facility],[address], [place], [address], [facility] 09/12/2023 14:30:22 09/23/2024 text/html Ms. Forbes is a very pleasant 83 yoF who is referred to me by her PCP, Dr. Vivi Bah, regarding microscopic hematuria. Patient has had nearly two month history of pink discoloration on her toilet paper and small drops of blood within the toilet bowel. Initially it was unclear as to where it was coming from. She was seen by her PCP who initiated a work up including UA which confirmed diagnosis of hematuria. She then underwent a CT Urogram which noted an abnormality along the right bladder wall so she was referred to me today.This pattern has continued with 2-3 days of minimal amount of blood on toilet tissue or within the bowl. No dysuria, fevers, chills, nausea, emesis, or change in bowel habits.Never a smoker. 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 No evidence of CIS but no muscularis present in the pathology specimen.05/24/20:He re for follow up HG pT1 bladder cancer. Currently undergoing induction BCG.08/09/20Here for follow up HG pT1 bladder cancer. Has now completed induction BCG. Negative surveillance cystoscopy. 12/20/21:Here for follow up HG pT1 bladder cancer, surveillance cystoscopy. Doing well. 03/18/2022:Here for follow up HG pT1 bladder cancer, surveillance cystoscopy. Doing well. No evidence of post-BCG recurrence thus far. 09/18/2022:Here for follow up HG pT1 bladder cancer, surveillance cystoscopy. Doing great. 03/13/2023:Here for follow up HG pT1 bladder cancer, surveillance cystoscopy. Reports that she has had a couple of UTIs in the past couple of months. 09/12/2023:Here for follow up HG pT1 bladder cancer, surveillance cystoscopy. Doing well, no interval UTIs 09/23/2024:Here for follow up HG pT1 bladder cancer, surveillance cystoscopy. Doing well, no interval UTIs Mervin Browning MD [address] [facility],[address], [place], [address], [facility] 09/23/2024 15:54:19 OBGyn Episode No OBEpisode recorded.
[2025-02-13 09:09] VITALS: BP 138/76; PULSE 134; RESP 18; TEMP 36.4; O2SAT 96; BMI 21.2
[2025-02-13 09:35] LABS: Appearance Urine Cloudy (Clear)
[2025-02-13 09:55] LABS: Lactate* 1.9 mmol/L (0.5-1.9)
[2025-02-13 09:56] VITALS: PULSE 122; RESP 18; O2SAT 100
[2025-02-13 09:58] LABS: Hematocrit* 43.2 % (33.0-51.0); Hemoglobin* 14.2 gm/dL (12.0-16.0); Immature Granulocytes Abs Auto 0.05 K/uL (0.00-0.30); Immature Granulocytes Pct Auto 0.5 %; Lymphocytes Absolute Auto 0.80 K/uL (0.90-2.90); Mean Corpuscular HGB Conc 33 gm/dL (32-36); Mean Corpuscular Hemoglobin 40 pg (26-34); Mean Corpuscular Volume 123 fL (80-100); RDW Coefficient of Variation % 13.8 % (11.5-15.5); Red Blood Count* 3.52 m/uL (4.00-5.20); White Blood Count* 10.42 K/uL (4.50-11.00)
--- OUTSIDE RECORDS SUMMARY | 2025-02-13 09:58 | XMS_ITS | Clinical Summary ---
Author Organization [facility] Address [address] [place] [id number] Care Team Providers Care Backup Administrator Name Role Phone Muriel Lindsey Nicolas Unavailable [phone] Chitra Pierre MD Unavailable [phone] Mervin Browning MD Unavailable [phone] Candida Alfredo MD Unavailable Alda Saab MD [...] by mouth once daily if needed for Constipatio n. 0 7 Active hydroxyurea (Hydrea) 500 mg capsuleIndication s:Thrombocythemia , essential (HC) 1500 mg Friday and Friday, 1000 mg all other days 60 Capsule 11 3 Active cholecalciferol (Vitamin D-3) 2,000 unit capsuleIndication s:Vitamin D deficiency Take 1 Capsule (2,000 units) by mouth once daily. 0 3 Active vit C,J-Nx-yhvqj-lute in-zeaxan (PreserVision AREDS-2) capsuleIndication s:Vitamin D deficiency Take 1 Capsule by mouth once daily. 0 3 Active cranberry fruit (Cranberry) 450 mg tablet Take 1 Tablet (450 mg) by mouth. 3 Active aspirin (Adult Low Dose Aspirin) 81 mg enteric coated tablet Take 1 tablet every day by oral route. Active cyanocobalamin (Vitamin B-12) 1,000 mcg tabletIndications :B12 deficiency Take 1 Tablet (1,000 mcg) by mouth once daily. Three times per week 36 Tablet 3 5 Active levothyroxine (SYNTHROID) 75 mcg tabletIndications :Hypothyroidism, unspecified type Take 1 Tablet (75 mcg) by mouth before breakfast. 90 Tablet 3 5 Active oxybutynin (DITROPAN) 5 mg tabletIndications :Urge incontinence Take 1 Tablet (5 mg) by mouth 2 times daily if needed (urinary urgency). 60 Tablet 2 5 Active oxybutynin (DITROPAN) 5 mg tabletIndications :Urge incontinence Take 1 Tablet (5 mg) by mouth 2 times daily if needed (urinary urgency). 60 Tablet 3 4 02/02/20 25 Discontinu ed(Reorder (E-cancel not sent)) levothyroxine (SYNTHROID) 75 mcg tabletIndications :Hypothyroidism, unspecified type Take 1 Tablet (75 mcg) by mouth before breakfast. 90 Tablet 3 5 02/02/20 25 Discontinu ed(Reorder (E-cancel not sent)) Active Problems Problem Noted Date Diagnosed Date Myeloproliferative disease 02/01/2025 Malignant tumor of urinary bladder 05/18/2020 Essential thrombocythemia 07/29/2018 Overview (04/03/2020): Hematology [facility] Osteopenia 06/03/2018 [...] Encounters Date Type Department Care Team Description 02/08/2025 Telephone [facility] [address] [place] [address] Alda Saab MD Abnormal Lab Results 02/04/2025 12:30 PM RADIATION ONCOLOGY MANAGER Office Visit [address] [place] [address] Cem Babin, AuD Hearing Aid 02/04/2025 Travel 02/01/2025 3:20 PM RADIATION ONCOLOGY MANAGER Ancillary Procedure [address] [address] 02/01/2025 1:00 PM RADIATION ONCOLOGY MANAGER Office Visit [facility] [address] [place] [address] Alda Saab MD Medicare ANNUAL (subsequent) Visit (84 yo Female/Check on ER impaction, has cleared./Request notes from [facility]) 02/01/2025 Travel 01/17/2025 2:30 PM CDT Office Visit [address] [address] Yolie Márquez AuD Hearing Aid (BABIN check) 01/17/2025 Travel 12/20/2024 11:00 AM CDT Office Visit [facility] [address] [place] [address] Yolie Márquez AuD Hearing Aid (BABIN check) 12/20/2024 Travel 12/17/2024 Telephone [facility] [address] [place] [address] Alda Saab MD [facility] 12/08/2024 10:00 AM CDT Ancillary Procedure [facility] [address] [place] [address] 12/08/2024 Orders Only [facility] Scanner 1 scan: (1-Ord) CURTIS, UNKNOWN PROVIDER, 12/08/2024 12/07/2024 11:00 AM CDT Office Visit [facility] [address] [place] [address] Yolie Márquez AuD Hearing Aid (BABIN check) 12/07/2024 Travel 11/16/2024 1:00 PM CDT Office Visit [facility] [address] [place] [address] Yolie Márquez AuD Hearing Aid (BABIN fitting) 11/16/2024 Travel from Last 3 Months Immunizations Immunization Administration Dates Next Due COVID-19 VACCINE MNEXSPIKE ( MODERNA 10MCG/0.2ML) 12YO+ PFS 01/05/2025 COVID-19 VACCINE SPIKEVAX (M ODERNA 50MCG/0.5ML) 12YO+ PFS 07/23/2023,01/09/2023 COVID-19 vaccine (Pfizer-Bio NTech 30mcg/0.3mL) 12YO+ BIVALENT PF, MDV 08/08/2022,12/19/2021 COVID-19 vaccine (Pfizer-Bio NTech 30mcg/0.3mL) 12YO+ LEEANNE-SUCROSE PF, MDV 07/10/2021 COVID-19 vaccine (Pfizer-Bio NTech 30mcg/0.3mL) PF, MDV 05/24/2020,05/03/2020 Influenza Virus, Unspecified 12/06/2010 Influenza, High-dose Inactivated 018,11/29/2016,12/28/2015,01/03,12/17/2013 Influenza, High-dose Quadriv alent Inactivated 01/12/2022,12/15/2020,11/19/2019 Influenza, IIV3 (Age >=3 years) 12/05/19 13,11/20/2011,12/06/2010,12/09 Influenza, Inactivated AIIV4 (Age 65+ Years) Preserv Free 01/09/2023 Influenza, Inactivated IIV3 (Age 65+ Years) Preserv Free 12/27/2024,12/23/2023,11/27/2018 Pneumococcal Poly,23-Valent (Pneumovax) 12/11/2010 Pneumococcal conj 13-Valent (Prevnar 13) 02/28/2015 RSV, Recombinant ADJ Reconst ituted (Arexvy 120MCG/0.5mL) 01/19/2024 Td (Age >=7 Years) 05/11/2004 Tdap 01/22/2022,12/31/2011 [...] Answer Date Recorded PHQ-2 TOTAL SCORE 0 02/01/2025 Social Connections Answer Date Recorded Do you often feel lonely or isolated from those around you? 0 10/29/2024 Alcohol Use Answer Date Recorded How often do you have a drink containing alcohol ? 1 02/01/2025 How many drinks containing a lcohol do you have on a typical day when you are drinking? 0 02/01/2025 How often do you have five or more drinks on one occasion? 0 02/01/2025 Financial Resource Strain Answer Date R ecorded [...] Sex Assigned at Female 04/09/2024 2:11 PM RADIATION ONCOLOGY MANAGER Legal Sex Female 6:26 AM RADIATION ONCOLOGY MANAGER Gender Identity Female 04/09/2024 2:11 PM RADIATION ONCOLOGY MANAGER Sexual Orientation Straight 04/09/2024 2: 11 PM RADIATION ONCOLOGY MANAGER Obstetrics History Para Term AB IAB SAB Ectopic Multiple Livin g Live Births 1 2 Date Outcome GA Total Labor Labor/2nd/3rd Weight Sex Type Anes PTL Larisa A1 A5 Name Clin Last Filed Vital Signs Vital Sign Reading Time Taken Comments Blood Pressure 114/63 02/01/2025 1:23 PM RADIATION ONCOLOGY MANAGER Pulse 88 02/01/2025 1:23 PM RADIATION ONCOLOGY MANAGER Temperature 36.8 C (98.2 F) 09/22/2023 5:18 PM CDT Respiratory Rate 19 09/22/2023 5:18 PM CDT Oxygen Saturation 95% 02/01/2025 1:23 PM RADIATION ONCOLOGY MANAGER Inhaled Oxygen Concentration - - Weight 67 kg (147 lb 12.8 oz) 02/01/2025 1:23 PM RADIATION ONCOLOGY MANAGER Height 179.1 cm (5' 10.5) 02/01/2025 1:23 PM CS T Body Mass Index 20.91 02/01/2025 1:23 PM RADIATION ONCOLOGY MANAGER Plan of Treatment Upcoming Encounters Date Type Department Care Team (Late st Contact Info) Description 02/16/2025 2:00 PM RADIATION ONCOLOGY MANAGER Office Visit [facility] [address] [place] [address] Cem Babin AuD [address] [place] [id number] Health Maintenance Due Date Last Done Comments BMI (ht and wt on same day) for age 18+ 02/01/2026 02/01/2025, 01/13/2024, 01/09/2023, Additional history exists Depression screening for age 12+ 02/01/2026 02/01/2025, 01/13/2024, 01/09/2023, Additional history exists Medicare Wellness for age 65+ 02/02/2026 02/01/2025, 01/13/2024, 01/09/2023, Additional history exists Tetanus booster 01/23/2032 01/22/2022, 05/2011, 05/11/2004 Pneumococcal series for age 50+ Completed 02/28/2015, 12/11/2010 DEXA/DXA scan for age 65+ Completed 2018, 01/19/2013, 12/25/2010, Additional history exists Zoster (shingles) series for age 50+ Completed 08/20/2018, 06/15/2018, 10/08/2006 RSV vaccine for adults or Completed 01/19/2024 Influenza Vaccine Completed 12/27/2024, , 01/09/2023, Additional history exists Hepatitis B series for 19+ Aged Out N o longer eligible based on patient's age to complete this topic Procedures Procedure Name Priority Date/Time Associated Diagnosis Comments XR MAMMO JUAN BILAT SCREEN Routine 02/01/2025 3:29 PM RADIATION ONCOLOGY MANAGER Visit for screening mammogram T4,FREE Routine 02/01/2025 2:33 PM RADIATION ONCOLOGY MANAGER Hypothyroidism, unspecified type BASIC METABOLIC PANEL Routine 02/01/2025 2:33 PM RADIATION ONCOLOGY MANAGER Hypothyroidism, unspecified type Urge incontinence B12 deficiency VITAMIN B12 Routine 02/01/2025 2:33 PM RADIATION ONCOLOGY MANAGER B12 deficiency TSH WITH REFLEX Routine 02/01/2025 2:33 PM RADIATION ONCOLOGY MANAGER Hypothyroidism, unspecified type ECHO TTE COMPLETE WO CONTRAST Routine 12/08/2024 10:48 AM CDT Heart murmur SCAN-LABORATORY REPORT 12/08/2024 12:00 AM CDT XR DXA BONE DENSITY 2 SITES AXIAL Routine 07/28/2018 2:49 PM CDT Disorder of bone Osteopenia, unspecified location from Last 3 Months or Most Recently Relevant to Health Maintenance Results * XR MAMMO JUAN BILAT SCREEN (02/01/2025 3:29 PM RADIATION ONCOLOGY MANAGER) Anatomical Region Laterality Modality BREASTS, Breast Left, Breast Right Bilateral Mammography Impressions 02/01/2025 3:50 PM RADIATION ONCOLOGY MANAGER There is no radiographic evidence for malignancy. Recommend annual mammograms. MAMMOGRAM ASSESSMENT: ACR 1 Negative PATIENTS: You will also receive a letter with your examination results in an easy to read format. If you have questions about your results, please contact your referring provider. Narrative 02/01/2025 3:50 PM RADIATION ONCOLOGY MANAGER For Patients: As a result of the Century Cures Act, medical imaging exams and procedure reports are released immediately into your electronic medical record. You may view this report before your referring provider. If you have questions, please contact your health care provider. XR MAMMO JUAN BILAT SCREEN [[id number]] CLINICAL HISTORY: This is an asymptomatic 84 y.o. patient. INDICATION FOR EXAM: Mammogram Screening. TECHNIQUE: CC and MLO views were obtained. This study was evaluated with the assistance of Computer-Aided Detection. Breast Tomosynthesis was used in interpretation. COMPARISON FILM: Yes 01/26/24 [facility] 10/17/22 [facility] FINDINGS: There are scattered areas of fibroglandular density. There are no dominant masses, suspicious micro calcifications or areas of architectural distortion. us Alda Saab MD MAMMO Final Result * (ABNORMAL) TSH WITH REFLEX (02/01/2025 2:33 PM RADIATION ONCOLOGY MANAGER) TSH W/REFLEX TO FT4 5.24(H) 0.40 - 4.50 mIU/L 02/02/2025 7:03 AM RADIATION ONCOLOGY MANAGER [facility] Blood BLOOD SPECIMEN / Unknown [facility] / Unknown 02/01/2025 2:33 PM RADIATION ONCOLOGY MANAGER 02/01/2025 2:33 PM RADIATION ONCOLOGY MANAGER us Alda Saab MD CHEMISTRY Final Result [facility] [address] [place] [address], [place] [phone] * T4,FREE (02/01/2025 2:33 PM RADIATION ONCOLOGY MANAGER) Pathologist [facility] T4, FREE 1.2 0.8 - 1.8 ng/dL 02/02/2025 7:03 AM RADIATION ONCOLOGY MANAGER [facility] Blood BLOOD SPECIMEN / Unknown [facility] / Unknown 02/01/2025 2:33 PM RADIATION ONCOLOGY MANAGER 02/01/2025 2:33 PM RADIATION ONCOLOGY MANAGER Alda Saab MD CHEMISTRY Final Result Performing Organization Address [facility]/ZIP Co de Phone Number [facility] [address] [address], * VITAMIN B12 (02/01/2025 2:33 PM RADIATION ONCOLOGY MANAGER) Pathologist [facility] VITAMIN B12 729 200 - 1100 pg/mL 02/02/2025 2:54 AM RADIATION ONCOLOGY MANAGER [facility] Blood BLOOD SPECIMEN / Unknown [facility] / Unknown 02/01/2025 2:33 PM RADIATION ONCOLOGY MANAGER 02/01/2025 2:33 PM RADIATION ONCOLOGY MANAGER Alda Saab MD CHEMISTRY Final Result Performing Organization Address [facility]/ZIP Co de Phone Number [facility] [address] [address], [place] [phone] * (ABNORMAL) BASIC METABOLIC PANEL (02/01/2025 2:33 PM RADIATION ONCOLOGY MANAGER) Pathologist [facility] SODIUM 142 135 - 146 mmol/L 02/02/2025 3:24 AM RADIATION ONCOLOGY MANAGER [facility] POTASSIUM 4.5 3.5 - 5.3 mmol/L 02/02/2025 3:24 AM RADIATION ONCOLOGY MANAGER [facility] CARBON DIOXIDE 30 20 - 32 mmol/L 02/02/2025 3:24 AM RADIATION ONCOLOGY MANAGER [facility] GLUCOSE 94 65 - 99 mg/dL 02/02/2025 3:24 AM RADIATION ONCOLOGY MANAGER [facility] Comment: Fasting reference interval CALCIUM 9.6 8.6 - 10.4 mg/dL 02/02/2025 3:24 AM RADIATION ONCOLOGY MANAGER [facility] CREATININE 0.89 0.60 - 0.95 mg/dL 02/02/2025 3:24 AM RADIATION ONCOLOGY MANAGER [facility] BUN/CREATININE RATIO 31(H) 6 - 22 (calc) 02/02/2025 3:24 AM RADIATION ONCOLOGY MANAGER [facility] EGFR 63 > OR = 60 mL/min/1.7 3m2 02/02/2025 3:24 AM RADIATION ONCOLOGY MANAGER [facility] UREA NITROGEN (BUN) 28(H) 7 - 25 mg/dL 02/02/2025 3:24 AM RADIATION ONCOLOGY MANAGER [facility] ELECTROLYTE BALANCE 7 7 - 17 mmol/L (calc) 02/02/2025 3:24 AM RADIATION ONCOLOGY MANAGER [facility] CHLORIDE 105 98 - 110 mmol/L 02/02/2025 3:24 AM RADIATION ONCOLOGY MANAGER [facility] Blood BLOOD SPECIMEN / Unknown [facility] / Unknown 02/01/2025 2:33 PM RADIATION ONCOLOGY MANAGER 02/01/2025 2:33 PM RADIATION ONCOLOGY MANAGER us Alda Saab MD CHEMISTRY Final Result [facility] [address] [place] [address], [place] [phone] * ECHO TTE COMPLETE WO CONTRAST (12/08/2024 [...] Tech: R Referring MD: ALDA SAAB Site: [facility] Reading Location: MOBILE OP Patient Location: Outpatient. [...] . This study was interpreted by an [facility] accredited facility. Final Procedure Note Leland Sorensen MD - 12/08/2024 ECHOCARDIOGRAM ROHIT FORBES : 1940 84 years Study Date: 12/08/2024 10:21:01 AM Gender: F BP: 104/61 mmHg Height: 180.00 cm BSA: 1.87 m Weight: 69.00 kg Tech: R Referring MD: ALDA SAAB Site: [facility] Reading Location: MOBILE OP Patient Location: Outpatient. [...] . This study was interpreted by an [facility] accredited facility. Final us Alda Saab MD ECHO ORD Final Result * SCAN-LABORATORY REPORT (12/08/2024 12:00 AM CDT) us Scanner OTHER Final [...] Recently Relevant to Health Maintenance Insurance MEDICARE ONLY [facility] MEDICARE PART B HB ONLY Advance Directives Documents on File Type Date Recorded Patient Sales Planning Manager Expl anation POLST 02/02/2025 1:49 PM Healthcare Directive 11/21/2016 2:32 PM [facility], 01/14/2005 Healthcare Directive 01/14/2005 HEALTH CARE DIRECTIVE, [facility], 01/14/05 * Full Code (Latest Code Status on File) Date Activated Date Inactivated Comments 07/15/2018 9:41 AM 07/16/2018 2:17 AM Care Teams Backup Administrator Relationship Specialty Start Date End Date Alda Saab MD [address] [place] [address] PCP - General Family Practice 07/12/22 Muriel Lindsey AuD Audiology 05/15/12 Chitra Pierre MD Dermatology Dermatology 05/13/17 Mervin Browning MD [address] [id number] Surgery - Urology 12/06/21 Candida Alfredo MD [address] [address] Hematology and Oncology 12/06/21
[2025-02-13 09:59] LABS: Slide Review Reflex No
[2025-02-13 10:11] LABS: Albumin* 4.2 g/dL (3.3-5.0); Chloride* 105 mmol/L (96-114); Sodium* 140 mmol/L (135-149)
[2025-02-13 10:12] LABS: Potassium* 3.9 mmol/L (3.6-5.1)
[2025-02-13 10:14] LABS: Alanine Aminotransferase* 19 U/L (4-35); Alkaline Phosphatase* 67 U/L (40-150); Anion Gap 5 mEq/L (7-15); Aspartate Amino Transferase* 31 U/L (12-35); Bilirubin Total* 0.6 mg/dL (0.1-1.5); Blood Urea Nitrogen* 19 mg/dL (7-30); Carbon Dioxide* 30 mmol/L (20-32); Creatinine* 0.8 mg/dL (0.5-1.5); Est. Creatinine Clearance* 43.50; Estimated Glomerular Filt Rate 72 ml/min; Total Protein* 7.2 g/dL (6.0-8.3)
[2025-02-13 10:15] LABS: Calcium* 9.8 mg/dL (8.4-10.6); Glucose* 110 mg/dL (60-115)
[2025-02-13 10:32] LABS: Procalcitonin* 0.04 ng/mL (<0.50)
[2025-02-13 11:06] VITALS: BP 134/70; PULSE 91; RESP 18; O2SAT 98
--- NOTE | 2025-02-13 11:14 | ED.FEMALEGU ---
HPI - Female Genitourinary General Chief complaint: Urogenital Problems, Female Stated complaint: uti Time Seen by Provider: 02/13/25 09:21 History of Present Illness HPI Narrative: Patient is a 84-year-old woman who comes in today with 2 days of dysuria. She has had no fevers no chills no night sweats. Tried to go to urgent care yesterday but was unable to get in. She comes in today along tachycardic initially with no fever. Labs are reassuring. She does have evidence of UTI on her UA. No other symptoms of sepsis syndrome no cough no shortness of breath no rash no skin breakdown. No delirium. Dysuria as mild no pain in the abdomen. Related Data Home Medications ?Medication ?Instructions ?Recorded ?Confirmed acetaminophen 325 mg capsule 325 mg PO Q6H PRN 10/10/21 02/13/25 aspirin 81 mg tablet,delayed 81 mg PO DAILY 10/10/21 02/13/25 release (Adult Aspirin Regimen) betamethasone dipropionate 0.05 % 1 applic topical BID 10/10/21 12/17/24 lotion multivitamin 1 tab PO DAILY 10/10/21 02/13/25 omega 9-cjr-qlo-fish oil 300 1 cap PO DAILY 10/10/21 02/13/25 mg-1,000 mg capsule (Fish Oil) polyethylene glycol 3350 17 17 g PO DAILY 10/10/21 02/13/25 gram/dose oral powder (Miralax) calcium 600 mg (as carbonate)-vit 1 tab PO BID 09/16/23 02/13/25 D3 1,000 unit-vitamin K2 90 mcg tab levothyroxine 75 mcg tablet 75 mcg PO DAILY 03/08/24 02/13/25 cranberry fruit 450 mg tablet 450 mg PO DAILY 02/13/25 02/13/25 (cranberry) oxybutynin chloride 5 mg tablet 5 mg PO BID PRN 02/13/25 02/13/25 Previous Rx's ?Medication ?Instructions ?Recorded hydroxyurea 500 mg capsule 500 mg PO DIRECTED #210 caps 09/08/24 Allergies Allergy/AdvReac Type Severity Reaction Status Date / Time No Known Drug Allergies Allergy Verified 02/13/25 09:16 Review of Systems Status of ROS: Reports: 10 or more systems reviewed and unremarkable except as noted in History and below [facility] Medical History UTI (urinary tract infection) ?N39.0 - Urinary tract infection, site not specified (ICD-10) Restless leg syndrome ?G25.81 - Restless legs syndrome (ICD-10) Hypothyroid ?E03.9 - Hypothyroidism, unspecified (ICD-10) Essential thrombocytosis ?D47.3 - Essential (hemorrhagic) thrombocythemia (ICD-10) Social History Narrative: Ms. Forbes [place] 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 Smoking Status: Never smoker Do you use any of these nicotine containing products: None Second hand tobacco smoke exposure: No How often do you have a drink containing alcohol: never AUDIT-C Alcohol total score: 0 Non-prescribed substance use: denies use Exam Narrative: Exam Narrative: EXAM GENERAL: Patient appears comfortable and well. EYES: No scleral icterus. ENT: Tympanic membranes and oropharynx normal. THYROID: no thyroid nodules or thyromegaly. LYMPH: No supraclavicular or cervical lymphadenopathy. SKIN: Visible skin seen during exam normal or with benign process only. EXT: No dependent lower extremity pedal edema. HEART: Initially tachycardic but resolved tachycardia with IV fluids and IV Rocephin. LUNGS: Clear to auscultation bilaterally with no crackles or wheezes. ABD: Soft, non tender, non distended. PSYCH: Good eye contact, speech is not pressured. Const: Vital Signs, click to edit/add: Vital Signs - 24 hr 02/13/25 09:09 02/13/25 09:56 02/13/25 11:06 Temperature 97.5 F L Pulse Rate [Pulse Oximeter] 134 H 122 H 91 Respiratory Rate 18 18 18 Blood Pressure [Le ft Upper Arm] 138/76 134/70 Pulse Oximetry 96 100 98 Oxygen Delivery Me thod Room Air Room Air Room Air Course Vital Signs Vital signs: Initial Vital Signs Temperature 97.5 F L 02/13/25 09:09 Temperature Source Temporal Artery Scan 02/13/25 09:09 Pulse Rate 134 H 02/13/25 09:09 Respiratory Rate 18 02/13/25 09:09 Blood Pressure 138/76 02/13/25 09:09 Blood Pressure Mean 96 02/13/25 09:09 Blood Pressure Position Sitting 02/13/25 09:09 Pulse Oximetry 96 02/13/25 09:09 Oxygen Delivery Method Room Air 02/13/25 09:09 Vital Signs Temperature 97.5 F L 02/13/25 09:09 Pulse Rate 134 H 02/13/25 09:09 Respiratory Rate 18 02/13/25 09:09 Blood Pressure 138/76 02/13/25 09:09 Pulse Oximetry 96 02/13/25 09:09 Oxygen Delivery Method Room Air 02/13/25 09:09 Temperature 97.5 F L 02/13/25 09:09 Pulse Rate 91 02/13/25 11:06 Respiratory Rate 18 02/13/25 11:06 Blood Pressure 134/70 02/13/25 11:06 Pulse Oximetry 98 02/13/25 11:06 Oxygen Delivery Method Room Air 02/13/25 11:06 Medications Administered Medications: Discontinued Medications Generic Name Dose Route Start Last Admin Trade Name Fernieq PRN Reason Stop Dose Admin Sodium Chloride 1,000 mls @ 1,000 mls/hr 02/13/25 09:26 02/13/25 10:59 0.9 % Sodium Chloride 1000 Ml IV 02/13/25 10:25 Infused .Q1H ELIAS Infusion MDM - Female Genitourinary MDM Narrative Medical decision making narrative: Patient is an 84-year-old woman who comes in today with urinary tract infections who initially was tachycardic. I did give her L of normal saline as well as 1 g Rocephin. Her symptoms have normalized. Her labs are reassuring. This time she would like to go home I do think that is reasonable her urine is sent for culture. Blood cultures are pending although I do think they will be negative. She will be set home with ciprofloxacin for an additional 3 days. Receive IV Rocephin. She will follow-up with her doctor this coming week if symptoms return. All questions were answered. Lab Data Labs: Lab Results 02/13/25 02/13/25 Range/Units 09:24 09:45 WBC 10.42 (4.50-11.00) K/uL RBC 3.52 L (4.00-5.20) m/uL Hgb 14.2 (12.0-16.0) gm/dL Hct 43.2 (33.0-51.0) % MCV 123 H (80-100) fL MCH 40 H (26-34) pg MCHC 33 (32-36) gm/dL RDW Coeff of Don 13.8 (11.5-15.5) % Plt Count 578 H (140-440) K/uL Neut % (Auto) 86.2 H (42.0-72.0) % Lymph % (Auto) 7.4 L (20-44) % [place] % (Auto) 4.2 (0.0-11.0) % Eos % (Auto) 0.9 (0.0-7.0) % Baso % (Auto) 0.8 (0.0-3.0) % Neut # (Auto) 9.00 H (1.7-7.0) K/uL Lymph # (Auto) 0.80 L (0.90-2.90) K/uL [place] # (Auto) 0.40 (0.00-0.90) K/UL Eos # (Auto) 0.09 (0.00-0.50) K/uL Baso # (Auto) 0.08 (0.00-0.30) K/uL Abs Immat Gran (auto) 0.05 (0.00-0.30) K/uL Imm/Tot Granulo (auto) 0.5 % Sodium 140 (135-149) mmol/L Potassium 3.9 (3.6-5.1) mmol/L Chloride 105 (96-114) mmol/L Carbon Dioxide 30 (20-32) mmol/L Anion Gap 5 L (7-15) mEq/L BUN 19 (7-30) mg/dL Creatinine 0.8 (0.5-1.5) mg/dL Estimated Creat Clear 43.50 Estimated GFR 72 ml/min Glucose 110 (60-115) mg/dL Lactate 1.9 (0.5-1.9) mmol/L Calcium 9.8 (8.4-10.6) mg/dL Total Bilirubin 0.6 (0.1-1.5) mg/dL AST 31 (12-35) U/L ALT 19 (4-35) U/L Alkaline Phosphatase 67 (40-150) U/L Troponin I 0.01 (0.01-0.04) ng/mL Total Protein 7.2 (6.0-8.3) g/dL Albumin 4.2 (3.3-5.0) g/dL Procalcitonin 0.04 (<0.50) ng/mL Urine Color Yellow (Yellow) Urine Appearance Cloudy A (Clear) Urine pH 5.5 (5.0-8.5) Ur Specific [place] 1.020 (1.000-1.030) Urine Protein 2+ A (Negative) Urine Glucose (UA) Negative (Negative) Urine Ketones Trace A (Negative) Urine Blood 3+ A (Negative) Urine Nitrite Negative (Negative) Urine Bilirubin Negative (Negative) Urine Urobilinogen 0.2 (0.2-1.0) Ur Leukocyte Esterase 3+ A (Negative) Urine RBC 25-50 A (0-2) Urine WBC >100 A (0-5) Ur Squamous Epith Cells Few (None-Few) Urine Bacteria Moderate A (None) Discharge Plan Discharge Clinical Impression: Acute UTI Patient Disposition: Home, Self-Care Condition: Stable Instructions: Urinary Tract Infection in Women (ED) Additional Instructions: Cipro as directed Good hydration Tylenol Follow-up with your doctor as needed. Activity Level: No Restrictions Discharge Diet: Regular Prescriptions: No Action levothyroxine 75 mcg tablet 75 mcg PO DAILY hydroxyurea 500 mg capsule 500 mg PO DIRECTED Qty: 210 3RF Rx Instructions: 1000 mg Friday through Friday 1500 mg Friday, Friday acetaminophen 325 mg capsule 325 mg PO Q6H PRN aspirin [Adult Aspirin Regimen] 81 mg tablet,delayed release (DR/EC) 81 mg PO DAILY betamethasone dipropionate 0.05 % lotion 1 applic topical BID omega 3-fkd-stl-fish oil [Fish Oil] 300-1,000 mg capsule 1 cap PO DAILY multivitamin Tablet 1 tab PO DAILY polyethylene glycol 3350 [Miralax] 17 gram/dose powder 17 g PO DAILY calcium carb-vitamin D3-vit K2 600 mg-1,000 unit-90 mcg tablet 1 tab PO BID cranberry 450 mg tablet 450 mg PO DAILY Rx Instructions: administer with a meal oxybutynin chloride 5 mg tablet 5 mg PO BID PRN Patient Comments: [NO ORIGINAL SIG] Follow Up/Referrals: Alda Johnson MD [Primary Care Provider, Family Practice] Stand Alone Forms: MyHealth Info Instructions
[2025-02-13] MEDS: cefTRIAXone 1 GM in 0.9 % SODIUM CHLORIDE Mini-bag 100 ML IVPB (11:34)
== END 2025-02-13 12:21 | disposition home or self-care (01) ==
PROVIDERS: Emergency Provider Internal Medicine; PCP Family Medicine
DX: N39.0 Urinary tract infection, site not specified (principal); R00.0 Tachycardia, unspecified
CPT/HCPCS: 36415; 80053; 81001; 81003; 83605; 84145; 84484; 85025; 87040; 87086; 96361; 96365; 99283; 99284; J0696; J7030